=== PATIENT | female | born 1955 | race Caucasian/White ===

== ENCOUNTER 2021-12-19 18:43 | Inpatient (IN) ==
--- NOTE | 2021-12-19 19:53 | Emergency Department Note ---
Impression & Plan Acute hyponatremia [facility] ED Provider Note HPI: The patient is a 66-year-old female who presents the emergency department chief complaint of dysuria that has been ongoing for the past 2 days. Patient states this feels similar to urinary tract infections that she has had in the past. Patient states that in addition to her dysuria she has felt some generalized weakness "for about the past month". Patient states that she is having some strange hallucinations after taking pain medication including seeing small bugs. On arrival here to the ED she is hemodynamically stable, she is able to give me a lucid history, she does not have any focal deficits, denies any headache, denies any abdominal pain. Patient is otherwise in no acute distress on my initial evaluation. ROS: -General: Generalized weakness -Psychiatric: Hallucinations with pain medications -: Dysuria *10 point review systems was conducted and is otherwise negative unless stated above *Outpatient medications and allergy history reviewed PE: General: Alert, NAD HEENT: Normocephalic, atraumatic Eyes: Extraocular eye movement is intact, no scleral erythema Pulmonary: Clear to auscultation bilaterally, no wheezing Cardio: Regular rate and rhythm GI: Abdomen is soft, nontender : No suprapubic tenderness MSK: No evidence of trauma or malformation of the extremities, no edema Skin: No evidence of rash Neuro: Alert, no focal deficits Psychiatric: Cooperative threat monitoring analyst: - An order was placed for continuous cardiac monitoring - Patient was noted to be in sinus rhythm with rate of 70 EKG: Rate: 71 Rhythm: Normal sinus rhythm Intervals: Within normal limits ST changes: No ST elevation Time: 2303 CT HEAD: No acute abnormality. No acute intracranial hemorrhage or abnormal extra-axial fluid collection. No acute stroke. Ventricles and sulci normal in size for age. No midline shift. No paranasal sinus air-fluid level. No fracture. Radiologist: Prashant Perea M.D. CT ABDOMEN & PELVIS With Contrast: Small bowel is normal in caliber. Stool and gas distended right through proximal left colon. Decompressed left colon to the level of anastomotic sutures of the sigmoid colon compatible prior resection. No definite swirling pattern to surrounding vessels and mesentery to suggest a volvulus. 7 cm stool ball the distal rectosigmoid colon. There is no definite bowel obstruction. There is no evidence for colitis or diverticulitis. No free intraperitoneal gas or free fluid. OTHER FINDINGS: Liver is unremarkable. Status post cholecystectomy.. No evidence for biliary ductal dilation. Pancreas is unremarkable. Spleen is unremarkable. No obstructive uropathy. Probable small right renal cysts.. Urinary bladder is normal in appearance. Uterus and ovaries are not identified. No abdominal aortic aneurysm. Atherosclerotic vascular calcifications. Spine degenerative changes. Grade 1 anterior spondylolisthesis of L4 on L5. Radiologist: Prashant Perea M.D. Study ready at 22:41 and initial results transmitted at 23:42 Medical Decision Making: Patient presented to the emergency department with multiple issues, she complain s of generalized weakness, states she is having intermittent hallucinations which she believes is associated with hydrocodone use, patient also states that she has had dysuria over the past 2 days. IV was established, lab work obtained, patient was placed on color television console monitor. Lab work shows evidence of leukocytosis greater than 16,000 with left shift, blood cultures were drawn in the ED, procalcitonin is elevated at 0.76, lactic acid is within normal limits. Chest x-ray does not show any obvious pneumonia per my interpretation, patient denies any respiratory symptoms or cough recently. COVID-19 testing is negative. Urinalysis shows ketonuria but no evidence of infection. Patient's lab work also shows hyponatremia at 125, she is not on any diuretic therapy, unclear source for this, she appears euvolemic on my exam. Given the patient's ongoing symptoms, in addition to abnormal lab work I did obtain CT imaging of the head that shows no acute abnormality, CT abdomen and pelvis does not show any evidence of any acute surgical process or obvious source for infection. On my reassessment the patient appears well, she remains lucid, she was treated with broad-spectrum antibiotics vancomycin and ceftriaxone, will hold on IV fluids secondary to the patient's hyponatremia, I do feel she would benefit from inpatient admission and further work-up. I discussed the case with the on-call hospitalist for [facility], Dr. Solis, who admitted the patient in stable condition for further care. Diagnosis: 1. Hyponatremia, acute 2. Generalized weakness 3. Intermittent hallucinations 4. Leukocytosis with left shift 5. Elevated procalcitonin Disposition: Admission Morris Cleveland, DO Emergency Medicine Past Med/Surg History Social History Smoking Status: Never smoker Preferred Language: Cambodian Feels Safe at Home: Yes Allergies Allergies Allergy/AdvReac Type Severity Reaction Status Date / Time codeine Allergy Unknown RASH Verified 12/19/21 22:01 Home Meds Home Medications Medication Instructions Recorded Confirmed Ozempic Dose 1 mg INJ WE 12/19/21 12/19/21 aluminum-mag hydroxide-simethicone 20 ml PO DAILY 12/19/21 12/19/21 200 mg-200 mg-20 mg/5 mL oral susp amlodipine 2.5 mg tablet 2.5 mg PO DAILY 12/19/21 12/19/21 atorvastatin 20 mg tablet 20 mg PO PM 12/19/21 12/19/21 cetirizine 10 mg tablet (Zyrtec) 10 mg PO DAILY 12/19/21 12/19/21 cholecalciferol (vitamin D3) 25 25 mcg PO 5XWK 12/19/21 12/19/21 mcg (1,000 unit) tablet (Vitamin D3) cholecalciferol (vitamin D3) 25 50 mcg PO TUSA 12/19/21 12/19/21 mcg (1,000 unit) tablet (Vitamin D3) multivitamin 1 tab PO DAILY 12/19/21 12/19/21 oxybutynin chloride 5 mg tablet 5 mg PO TID 12/19/21 12/19/21 triamcinolone acetonide 0.1 % 1 applic TOPICAL BID PRN 12/19/21 12/19/21 topical cream Results & Data (ED) Vital Signs Vital Signs - 24 hr 12/19/21 18:53 12/19/21 19:44 12/19/21 22:14 Temperature 36.2 C L 37.0 C Temperature Source Temporal Artery Scan Oral Pulse Rate 85 Pulse Rate [Finger] 81 79 Respiratory Rate 18 18 15 Respiratory Effort / Characteristics Non-Labored Spontaneous Non-Labored Spontaneous Non-Labored Respiratory Depth Normal Normal Normal Blood Pressure 120/74 Blood Pressure [Right Arm] 119/69 104/58 L Blood Pressure Mean 89 Blood Pressure Mean [Right Arm] 85 73 Blood Pressure Position Sitting Pulse Oximetry 98 98 98 Oxygen Delivery Method Room Air Room Air Room Air Sepsis Recent Fever Within 48 Hours No Sepsis New/Unexplained Change in Mental Status No Sepsis Action Taken by Nursing No Action Required Laboratory Data Result diagrams: 12/19/21 19:28 12/19/21 19:28 Lab Results 12/19/21 12/19/21 12/19/21 Range/Units 19:28 19:28 19:28 WBC 16.49 H (4.8-10.8) K/ul RBC 3.98 (3.93-5.22) M/uL Hgb 13.1 (12.0-16.0) g/dl Hct 36.3 (34.1-44.9) % MCV 91.2 (80.0-100.0) fL MCH 32.9 (25.0-34.0) pg MCHC 36.1 H (32.0-36.0) g/dL RDW Std Deviation 41.8 (36.4-46.3) fL RDW Coeff of Julita 12.6 (11.5-14.5) % Plt Count 427 H (130-400) K/uL MPV 10.5 (9.4-12.3) fL Immature Gran % (Auto) 2.4 % Neut % (Auto) 82.2 % Lymph % (Auto) 7.9 % [place] % (Auto) 7.3 % Eos % (Auto) 0.0 % Baso % (Auto) 0.2 % Neut # (Auto) 13.53 H (1.4-6.5) K/uL Lymph # (Auto) 1.31 (1.2-3.4) K/uL [place] # (Auto) 1.21 H (0.24-0.82) K/uL Eos # (Auto) 0.00 (0-0.50) K/uL Baso # (Auto) 0.04 (0-0.2) K/uL Immature Gran # (Auto) 0.40 H (0.00-0.02) K/uL Sodium 125 L (136-145) mmol/L Potassium 3.7 (3.5-5.1) mmol/L Chloride 89 L (98-107) mmol/L Carbon Dioxide 25 (21-32) mmol/L Anion Gap 11 (3-11) BUN 76 H (6-23) mg/dl Creatinine 0.85 (0.6-1.2) mg/dl Est Cr Clr Drug Dosing Not Reportable Est GFR ( Amer) 81.6 ml/min Est GFR (Non-Af Amer) 70.4 ml/min BUN/Creatinine Ratio 89.4 H (10-20) Glucose 94 (70-99(Fasting)) mg/dl Lactate (0.4-2.0) mmol/L Calcium 9.5 (8.5-10.1) mg/dl Total Bilirubin 2.2 H (0.2-1.0) mg/dl AST 90 H (13-39) U/L ALT 140 H (7-52) U/L Alkaline Phosphatase 97 (34-104) U/L Troponin I High Sens 12.3 (0-14) pg/ml Total Protein 7.2 (6.0-8.3) gm/dl Albumin 3.4 (3.4-5.0) gm/dl Globulin 3.8 (2.5-4.0) gm/dl Albumin/Globulin Ratio 0.9 (0.9-2) Procalcitonin 0.76 H (0-0.5) ng/ml Urine Color Urine Appearance (Clear) Urine pH (4.5-7.5) Ur Specific [place] (1.000-1.030) Urine Protein (Negative) Urine Glucose (UA) (Negative) Urine Ketones (Negative) Urine Blood (Negative) Urine Nitrite (Negative) Urine Bilirubin (Negative) Urine Urobilinogen (Negative) Ur Leukocyte Esterase (Negative) SARS-CoV-2 (PCR) (Negative) Influenza Type A (PCR) (Neg) Influenza Type B (PCR) (Neg) RSV (RT-PCR) (Neg) 12/19/21 12/19/21 12/19/21 Range/Units 19:45 20:36 20:52 WBC (4.8-10.8) K/ul RBC (3.93-5.22) M/uL Hgb (12.0-16.0) g/dl Hct (34.1-44.9) % MCV (80.0-100.0) fL MCH (25.0-34.0) pg MCHC (32.0-36.0) g/dL RDW Std Deviation (36.4-46.3) fL RDW Coeff of Julita (11.5-14.5) % Plt Count (130-400) K/uL MPV (9.4-12.3) fL Immature Gran % (Auto) % Neut % (Auto) % Lymph % (Auto) % [place] % (Auto) % Eos % (Auto) % Baso % (Auto) % Neut # (Auto) (1.4-6.5) K/uL Lymph # (Auto) (1.2-3.4) K/uL [place] # (Auto) (0.24-0.82) K/uL Eos # (Auto) (0-0.50) K/uL Baso # (Auto) (0-0.2) K/uL Immature Gran # (Auto) (0.00-0.02) K/uL Sodium (136-145) mmol/L Potassium (3.5-5.1) mmol/L Chloride (98-107) mmol/L Carbon Dioxide (21-32) mmol/L Anion Gap (3-11) BUN (6-23) mg/dl Creatinine (0.6-1.2) mg/dl Est Cr Clr Drug Dosing Est GFR ( Amer) ml/min Est GFR (Non-Af Amer) ml/min BUN/Creatinine Ratio (10-20) Glucose (70-99(Fasting)) mg/dl Lactate 1.2 (0.4-2.0) mmol/L Calcium (8.5-10.1) mg/dl Total Bilirubin (0.2-1.0) mg/dl AST (13-39) U/L ALT (7-52) U/L Alkaline Phosphatase (34-104) U/L Troponin I High Sens (0-14) pg/ml Total Protein (6.0-8.3) gm/dl Albumin (3.4-5.0) gm/dl Globulin (2.5-4.0) gm/dl Albumin/Globulin Ratio (0.9-2) Procalcitonin (0-0.5) ng/ml Urine Color Yellow Urine Appearance Clear (Clear) Urine pH 5.5 (4.5-7.5) Ur Specific [place] 1.020 (1.000-1.030) Urine Protein Negative (Negative) Urine Glucose (UA) Negative (Negative) Urine Ketones Trace H (Negative) Urine Blood Negative (Negative) Urine Nitrite Negative (Negative) Urine Bilirubin Negative (Negative) Urine Urobilinogen Negative (Negative) Ur Leukocyte Esterase Negative (Negative) SARS-CoV-2 (PCR) NEGATIVE (Negative) Influenza Type A (PCR) Negative (Neg) Influenza Type B (PCR) Negative (Neg) RSV (RT-PCR) Negative (Neg) Administered Medications Discontinued Medications Ioversol (Optiray 320 100ml) 100 ml IV ONCE ONE Stop: 12/19/21 22:40 Last Admin: 12/19/21 22:39 Dose: 93 ml Documented by: [id number] Discharge Plan Visit Data Chief Complaint: Urinary Symptoms Stated Complaint: THINKS HAS UTI. CONCERNED OF SEPSIS ED Provider: Morris Cleveland Discharge Problem: Acute hyponatremia Forms Stand Alone Forms: [facility] [employer] Prescriptions Prescriptions: No Action multivitamin Tablet 1 tab PO DAILY RF: 0 amlodipine 2.5 mg Tablet 2.5 mg PO DAILY RF: 0 oxybutynin chloride 5 mg Tablet 5 mg PO TID RF: 0 atorvastatin 20 mg Tablet 20 mg PO PM RF: 0 cetirizine [Zyrtec] 10 mg Tablet 10 mg PO DAILY RF: 0 triamcinolone acetonide 0.1 % Cream 1 applic TOPICAL BID PRN (Reason: Itching) RF: 0 alum-mag hydroxide-simeth [Maalox] 200-200-20 mg/5 mL Suspension 20 ml PO DAILY RF: 0 cholecalciferol (vitamin D3) [Vitamin D3] 25 mcg (1,000 unit) Tablet 25 mcg PO 5XWK RF: 0 cholecalciferol (vitamin D3) [Vitamin D3] 25 mcg (1,000 unit) Tablet 50 mcg PO TUSA RF: 0 Ozempic Dose 1 mg INJ WE RF: 0 Referrals Referrals: Meron Pate C.R.NCoriP. [Primary Care Provider] -
[2021-12-19 19:54] LABS: Basophils # (auto) 0.04 K/uL (0-0.2); Basophils % (auto) 0.2 %; Hematocrit (blood only) 36.3 % (34.1-44.9); Hemoglobin 13.1 g/dl (12.0-16.0); Immature Granulocytes % (auto) 2.4 %; Lymphocytes # (auto) 1.31 K/uL (1.2-3.4); Lymphocytes % (auto) 7.9 %; Mean Corpuscular Hemoglobin 32.9 pg (25.0-34.0); Mean Corpuscular Hgb Conc 36.1 g/dL (32.0-36.0); Mean Corpuscular Volume 91.2 fL (80.0-100.0); Mean Platelet Volume 10.5 fL (9.4-12.3); Monocytes # (auto) 1.21 K/uL (0.24-0.82); Monocytes % (auto) 7.3 %; Neutrophils # (auto) 13.53 K/uL (1.4-6.5); Neutrophils % (auto) 82.2 %; Platelet Count 427 K/uL (130-400); RDW Coefficient of Variation 12.6 % (11.5-14.5); RDW Standard Deviation 41.8 fL (36.4-46.3); Red Blood Count 3.98 M/uL (3.93-5.22); White Blood Count 16.49 K/ul (4.8-10.8)
[2021-12-19 20:06] LABS: Alanine Aminotransferase 140 U/L (7-52); Albumin Globulin Ratio 0.9 (0.9-2); Albumin Level 3.4 gm/dl (3.4-5.0); Alkaline Phosphatase 97 U/L (34-104); Anion Gap 11 (3-11); Aspartate Aminotransferase 90 U/L (13-39); BUN Creatinine Ratio 89.4 (10-20); Bilirubin,Total 2.2 mg/dl (0.2-1.0); Blood Urea Nitrogen 76 mg/dl (6-23); Calcium 9.5 mg/dl (8.5-10.1); Carbon Dioxide 25 mmol/L (21-32); Chloride 89 mmol/L (98-107); Est GFR (African American) 81.6 ml/min; Est GFR (Non-African American) 70.4 ml/min; Globulin 3.8 gm/dl (2.5-4.0); Glucose 94 mg/dl (70-99(Fasting)); Potassium 3.7 mmol/L (3.5-5.1); Sodium 125 mmol/L (136-145); Total Protein 7.2 gm/dl (6.0-8.3)
[2021-12-19 20:19] LABS: Appearance Urine Clear (Clear); Bilirubin Urine Negative (Negative); Blood Urine Negative (Negative); Color Urine Yellow; Glucose Urine UA Negative (Negative); Ketones Urine Trace (Negative); Leukocyte Esterase Urine Negative (Negative); Nitrite Urine Negative (Negative); Protein Urine Negative (Negative); Urobilinogen Urine Negative (Negative); pH Urine 5.5 (4.5-7.5)
[2021-12-19 22:01] LABS: Influenza A virus by PCR Negative (Neg); Influenza B virus by PCR Negative (Neg); RSV by PCR Negative (Neg); SARS CoV2 RNA(COVID-19) InHosp NEGATIVE (Negative)
[2021-12-19] MEDS ORDERED: OPTIRAY 320 100ml IV ONE (22:39)
[2021-12-19 23:34] LABS: Troponin I High Sensitivity 12.3 pg/ml (0-14)
[2021-12-19] MEDS ORDERED: VANCOMYCIN HCL 1,750 MG in SODIUM CHLORIDE 0.9% 500 ML IV ONE (23:53)
[2021-12-19] MEDS ORDERED: VANCOMYCIN CONSULT ACTIVE PRN (23:53)
[2021-12-19] MEDS ORDERED: cefTRIAXone SODIUM 2,000 MG/70 ML BAG IV STA (23:53)
[2021-12-20] MEDS ORDERED: SODIUM CHLORIDE 1 GM TABLET PO STA (00:54)
--- NOTE | 2021-12-20 01:02 | History & Physical Report ---
Date of Service December 20, 2021 Assessment & Plan (1) Acute hyponatremia: Plan: Sodium 125 on admission Serum osmolality and urine osmolality have been added and are pending Patient has been drinking a lot of water due to symptoms of dysuria, question possible polydipsia component Restrict 1500 mils daily Start sodium chloride 1 g p.o. 3 times daily Follow serial BMP (2) Hallucinations, visual: Plan: Visual hallucinations- Potential causes include but not limited to: Hydrocodone side effect, tickborne illness, hyponatremia (3) Abnormal LFTs: Plan: AST 90, ALT 140, type total bilirubin is 2.2 Only comparison was in 2016, when normal Check hepatitis profile Check CK Due to abnormal LFTs and hallucinations: Check Lyme, anaplasmosis and babesiosis antibodies Check anaplasmosis babesiosis peripheral smear (4) Hypertension: Plan: Hold amlodipine (5) Hyperlipidemia: Plan: Continue atorvastatin (6) Diabetes mellitus: Plan: Hold Ozempic Place on Accu-Cheks before meals and at bedtime with NovoLog coverage per scale (7) Allergic rhinitis: Plan: Continue cetirizine (8) Vitamin D deficiency: Plan: Continue vitamin D (9) Bladder spasms: Plan: Continue oxybutynin chloride Patient reports a bladder stimulator placed 05/2020 is no longer functional (10) Colon cancer: Plan: History of colon cancer status post resection (11) Right leg pain: Plan: Patient reports she has a shooting pain down her right leg intermittently after having received injection by Dr. Kuo in her right hip on 12/05 work-up is ongoing per outpatient History of Present Illness Chief Complaint: The patient presents to the emergency department with complaint of discomfort urinating for the past 2 to 3 days, similar to symptoms that she has had in the past when she had urinary tract infections. She also complains of hallucinations including seeing small bugs, and feeling generally weak. Primary Care Provider: AYE Moise The patient is a 66-year-old female with a past medical history including colon cancer s/p resection, hypertension, hyperlipidemia, allergic rhinitis, vitamin D deficiency, urinary bladder spasm and diabetes mellitus. She presents with symptoms as noted above. Allergies Allergy/AdvReac Type Severity Reaction Status Date / Time codeine Allergy Unknown RASH Verified 12/19/21 22:01 Home Medications Medication Instructions Recorded Confirmed Type Ozempic Dose 1 mg INJ WE 12/19/21 12/19/21 History aluminum-mag hydroxide-simethicone 20 ml PO DAILY 12/19/21 12/19/21 History 200 mg-200 mg-20 mg/5 mL oral susp amlodipine 2.5 mg tablet 2.5 mg PO DAILY 12/19/21 12/19/21 History atorvastatin 20 mg tablet 20 mg PO PM 12/19/21 12/19/21 History cetirizine 10 mg tablet (Zyrtec) 10 mg PO DAILY 12/19/21 12/19/21 History cholecalciferol (vitamin D3) 25 25 mcg PO 5XWK 12/19/21 12/19/21 History mcg (1,000 unit) tablet (Vitamin D3) cholecalciferol (vitamin D3) 25 50 mcg PO TUSA 12/19/21 12/19/21 History mcg (1,000 unit) tablet (Vitamin D3) multivitamin 1 tab PO DAILY 12/19/21 12/19/21 History oxybutynin chloride 5 mg tablet 5 mg PO TID 12/19/21 12/19/21 History triamcinolone acetonide 0.1 % 1 applic TOPICAL BID PRN 12/19/21 12/19/21 History topical cream Past Med/Surg History Medical History (Updated 12/20/21 @ 02:40 by Montana Ventura MD) Allergic rhinitis Bladder spasms Diabetes mellitus Hyperlipidemia Hypertension Vitamin D deficiency Social History Smoking Status: Never smoker Preferred Language: Bengali Feels Safe at Home: Yes Review of Systems Review of Systems: The patient denies chest pain, palpitations, shortness of breath, dyspnea on exertion, cough, lower extremity swelling, sore throat, fevers, chills, sweats, nausea, vomiting, diarrhea , constipation, abdominal pain, pelvic pain, blood in urine or stool, dysuria, lightheadedness, dizziness, headache, memory loss, loss of consciousness, rash, abnormal bruising or bleeding, imbalance, focal weakness, numbness or tingling in arms or legs, generalized arthralgias or myalgias, back or neck pain, or night sweats. The review of systems is otherwise negative other than for that already noted above, and at least 10 systems have been reviewed. Physical Exam Physical Exam: The patient is awake, alert and oriented 3, well developed and well nourished, normocephalic and atraumatic, lying in bed and in no acute distress. HEENT--PERRL, EOMI, mucous membranes and oropharynx Normal. Neck--supple. No JVD. No bruits. Thyroid normal, trachea midline, no adenopathy. Heart--normal S1 and S2. No murmurs, rubs or gallops. Lungs--clear bilaterally, no respiratory distress, no accessory muscle use. Abdomen--normal bowel sounds and soft. Nontender. Nondistended, no hernias or masses, no organomegaly. Extremities--no cyanosis or clubbing. No edema. There are good distal pulses b/l. Dermatologic--normal skin turgor, normal color, no abnormal lymph nodes, no rash. Neurologic--cranial nerves II through XII grossly intact. Rheumatologic--normal range of motion. Psychiatric--normal affect. Results & Data Results & Data ([facility]) Vital Signs (Past 12 Hours) Vital Signs Temp Pulse Pulse Resp BP BP Pulse Ox 12/20/21 00:00 36.9 C 87 18 109/59 L 97 12/19/21 22:14 37.0 C 79 15 104/58 L 98 12/19/21 19:44 81 18 119/69 98 12/19/21 18:53 36.2 C L 85 18 120/74 98 Laboratory Results Laboratory Results WBC 16.49 K/ul (4.8-10.8) H 12/19/21 19:28 RBC 3.98 M/uL (3.93-5.22) 12/19/21 19:28 Hgb 13.1 g/dl (12.0-16.0) 12/19/21 19:28 Hct 36.3 % (34.1-44.9) 12/19/21 19: MCV 91.2 fL (80.0-100.0) 12/19/21 19:28 MCH 32.9 pg (25.0-34.0) 12/19/21 19: MCHC 36.1 g/dL (32.0-36.0) H 12/19/21 19:28 RDW Std Deviation 41.8 fL (36.4-46.3) 12/19/21 19: RDW Coeff of Julita 12.6 % (11.5-14.5) 12/19/21 19: Plt Count 427 K/uL (130-400) H 12/19/21 19: MPV 10.5 fL (9.4-12.3) 12/19/21: Immature Gran % (Auto) 2.4 % 12/19/21 19: Neut % (Auto) 82.2 % 12/19/21: Lymph % (Auto) 7.9 % 12/19/21 19: [place] % (Auto) 7.3 % 12/19/21 19: Eos % (Auto) 0.0 % 12/19/21 19: Baso % (Auto) 0.2 % 12/19/21: Neut # (Auto) 13.53 K/uL (1.4-6.5) H 12/19/21: Lymph # (Auto) 1.31 K/uL (1.2-3.4) 12/19/21: Perry # (Auto) 1.21 K/uL (0.24-0.82) H 12/19/21: Eos # (Auto) 0.00 K/uL (0-0.50) 12/19/21 19: Baso # (Auto) 0.04 K/uL (0-0.2) 12/19/21: Immature Gran # (Auto) 0.40 K/uL (0.00-0.02) H 12/19/21: Sodium 125 mmol/L (136-145) L 12/19/21: Potassium 3.7 mmol/L (3.5-5.1) 12/19/21: Chloride 89 mmol/L (98-107) L 12/19/21: Carbon Dioxide 25 mmol/L (21-32) 12/19/21: Anion Gap 11 (3-11) 12/19/21: BUN 76 mg/dl (6-23) H 12/19/21: Creatinine 0.85 mg/dl (0.6-1.2) 12/19/21: Est Cr Clr Drug Dosing Not Reportable 12/19/21: Est GFR ( Amer) 81.6 ml/min 07/06/22 19:28 Est GFR (Non-Af Amer) 70.4 ml/min 12/19/21 19:28 BUN/Creatinine Ratio 89.4 (10-20) H 12/19/21 19:28 Glucose 94 mg/dl (70-99(Fasting)) 12/19/21 19:28 Osmolality 285 mOsm/kg (280-300) 12/19/21 19:28 Lactate 1.2 mmol/L (0.4-2.0) 12/19/21 20:36 Calcium 9.5 mg/dl (8.5-10.1) 12/19/21 19:28 Total Bilirubin 2.2 mg/dl (0.2-1.0) H 12/19/21 19:28 AST 90 U/L (13-39) H 12/19/21 19:28 ALT 140 U/L (7-52) H 12/19/21 19:28 Alkaline Phosphatase 97 U/L (34-104) 12/19/21 19:28 Troponin I High Sens 12.3 pg/ml (0-14) 12/19/21 19:28 Total Protein 7.2 gm/dl (6.0-8.3) 12/19/21 19:28 Albumin 3.4 gm/dl (3.4-5.0) 12/19/21 19:28 Globulin 3.8 gm/dl (2.5-4.0) 12/19/21 19:28 Albumin/Globulin Ratio 0.9 (0.9-2) 12/19/21 19:28 Procalcitonin 0.76 ng/ml (0-0.5) H 12/19/21 19:28 Urine Color Yellow 12/19/21 19:45 Urine Appearance Clear (Clear) 12/19/21 19:45 Urine pH 5.5 (4.5-7.5) 12/19/21 19:45 Ur Specific [place] 1.020 (1.000-1.030) 12/19/21 19:45 Urine Protein Negative (Negative) 12/19/21 19:45 Urine Glucose (UA) Negative (Negative) 12/19/21 19:45 Urine Ketones Trace (Negative) H 12/19/21 19:45 Urine Blood Negative (Negative) 12/19/21 19:45 Urine Nitrite Negative (Negative) 12/19/21 19:45 Urine Bilirubin Negative (Negative) 12/19/21 19:45 Urine Urobilinogen Negative (Negative) 12/19/21 19:45 Ur Leukocyte Esterase Negative (Negative) 12/19/21 19:45 SARS-CoV-2 (PCR) NEGATIVE (Negative) 12/19/21 20:52 Influenza Type A (PCR) Negative (Neg) 12/19/21 20:52 Influenza Type B (PCR) Negative (Neg) 12/19/21 20:52 RSV (RT-PCR) Negative (Neg) 12/19/21 20:52 Diagnostic Findings [facility] Patient: ERENDIRA LEWIS (Female) : 51 Status: ER Date: 12/19/21 22:37 Room #: History: dizzy Slices: 58 Priors: Tech: Kong Garcíaie @ [phone] Exams: CT HEAD Contrast: Accession Numbers: [id number] Referring Physician: REFERRED SELF Preliminary Findings Only See Final Report For Complete Findings CT HEAD: No acute abnormality. No acute intracranial hemorrhage or abnormal extra-axial fluid collection. No acute stroke. Ventricles and sulci normal in size for age. No midline shift. No paranasal sinus air-fluid level. No fracture. Radiologist: Prashant Perea M.D. Study ready at 22:41 and initial results transmitted at 23:33 *This report constitutes a preliminary interpretation only. Non-acute findings felt to be unrelated to the clinical presentation may not be discussed in this report. The study will be interpreted and a final report will be generated by the local Radiologist the following shift. To reach the [facility] radiology department call [phone]. If a discrepancy is found between the preliminary and final interpretations of this study, please notify us via our Client Portal at [email or web address], under QA Exams. You can also fax this report with a description of the discrepancy, or include the final report, to our daytime fax number [phone]. If faxing, please indicate the severity of discrepancy using one of the following categories: [ ] 1 - Agree/Informational [ ] 2 - Unlikely to Affect Management [ ] 3 - Possible Eventual Change of Management [ ] 4 - Probable Immediate Change of Management For all other patient related information, please fax us at [phone]. [id number] [facility] Patient: ERENDIRA LEWIS (Female) : 51 Status: ER Date: 12/19/21 22:37 Room #: History: LOWER ABD PAIN WITH LEUKOCYTOSIS Slices: 669 Priors: Tech: Kong Garcíaie @ [phone] Exams: CT ABDOMEN & PELVIS With Contrast Contrast: IV Amt: 93 ML OPTIRAY 320 Accession Numbers: [id number] Referring Physician: REFERRED SELF Preliminary Findings Only See Final Report For Complete Findings CT ABDOMEN & PELVIS With Contrast: Small bowel is normal in caliber. Stool and gas distended right through proximal left colon. Decompressed left colon to the level of anastomotic sutures of the sigmoid colon compatible prior resection. No definite swirling pattern to surrounding vessels and mesentery to suggest a volvulus. 7 cm stool ball the distal rectosigmoid colon. There is no definite bowel obstruction. There is no evidence for colitis or diverticulitis. No free intraperitoneal gas or free fluid. OTHER FINDINGS: Liver is unremarkable. Status post cholecystectomy.. No evidence for biliary ductal dilation. Pancreas is unremarkable. Spleen is unremarkable. No obstructive uropathy. Probable small right renal cysts.. Urinary bladder is normal in appearance. Uterus and ovaries are not identified. No abdominal aortic aneurysm. Atherosclerotic vascular calcifications. Spine degenerative changes. Grade 1 anterior spondylolisthesis of L4 on L5. Radiologist: Prashant Perea M.D. Study ready at 22:41 and initial results transmitted at 23:42 *This report constitutes a preliminary interpretation only. Non-acute findings felt to be unrelated to the clinical presentation may not be discussed in this report. The study will be interpreted and a final report will be generated by the local Radiologist the following shift. To reach the [facility] radiology department call [phone]. If a discrepancy is found between the preliminary and final interpretations of this study, please notify us via our Client Portal at [email or web address], under QA Exams. You can also fax this report with a description of the discrepancy, or include the final report, to our daytime fax number [phone]. If faxing, please indicate the severity of discrepancy using one of the following categories: [ ] 1 - Agree/Informational [ ] 2 - Unlikely to Affect Management [ ] 3 - Possible Eventual Change of Management [ ] 4 - Probable Immediate Change of Management For all other patient related information, please fax us at [phone]. Code Status & VTE Plan Code Status Full code VTE Prophylaxis Plan VTE Prophylaxis will be ordered: Yes PG Care Time/CCT Total # of Minutes Spent Total Time Spent with Patient: Total time spent is greater than 50% in coordination of care (as documented) at patient's floor/unit and/or counseling patient: Coding Level of Care Code 41892 Initial Inpt Care Lvl 3 Diagnoses Acute hyponatremia E87.1 Colon cancer C18.9 Hallucinations, visual R44.1 Abnormal LFTs R79.89 Hypertension I10 Hyperlipidemia E78.5 Diabetes mellitus E11.9 Allergic rhinitis J30.9 Vitamin D deficiency E55.9 Bladder spasms N32.89 Right leg pain M79.604
[2021-12-20] MEDS ORDERED: ONDANSETRON INJ 2 MG/ML 2 ML VIAL IV PRN (02:15)
[2021-12-20 03:33] LABS: Lyme Ab IgG w/WB Rflx Negative (Negative); Lyme Ab IgM w/WB Rflx Negative (Negative)
[2021-12-20 06:13] LABS: Basophils # (auto) 0.02 K/uL (0-0.2); Basophils % (auto) 0.1 %; Hemoglobin 11.2 g/dl (12.0-16.0); Immature Granulocytes # (auto) 0.26 K/uL (0.00-0.02); Immature Granulocytes % (auto) 1.7 %; Lymphocytes # (auto) 0.92 K/uL (1.2-3.4); Mean Corpuscular Hemoglobin 33.2 pg (25.0-34.0); Mean Corpuscular Hgb Conc 36.1 g/dL (32.0-36.0); Mean Platelet Volume 10.3 fL (9.4-12.3); Monocytes # (auto) 0.83 K/uL (0.24-0.82); Monocytes % (auto) 5.4 %; Neutrophils # (auto) 13.31 K/uL (1.4-6.5); Neutrophils % (auto) 86.8 %; Platelet Count 377 K/uL (130-400); RDW Standard Deviation 40.9 fL (36.4-46.3); Red Blood Count 3.37 M/uL (3.93-5.22); White Blood Count 15.34 K/ul (4.8-10.8)
[2021-12-20 06:16] LABS: Albumin Globulin Ratio 0.9 (0.9-2); Albumin Level 2.9 gm/dl (3.4-5.0); Bilirubin,Total 1.7 mg/dl (0.2-1.0); Calcium 8.2 mg/dl (8.5-10.1); Creatinine Clr Calc Pharmacy 124.1 ml/min; Est GFR (African American) 119.3 ml/min; Globulin 3.2 gm/dl (2.5-4.0); Potassium 3.3 mmol/L (3.5-5.1); Total Protein 6.1 gm/dl (6.0-8.3)
--- NOTE | 2021-12-20 06:56 | CT Scan Report ---
CT head/brain wo con CLINICAL HISTORY: 66 years-old Female with dizzy. Acute dizziness TECHNIQUE: Multiple axial CT images of the head were obtained without contrast. A dose lowering tech nique was utilized adhering to the principles of ALARA. CT DOSE: 537.48 mGy.cm COMPARISON: None. FINDINGS: No acute intracranial hemorrhage, midline shift, intracranial mass, hydrocephalus, territorial ischem ia or abnormal extra-axial collection. Low-lying cerebellar tonsils. The calvarium is intact. The paranasal sinuses, mastoid air cells, and middle ear cavities are clear . IMPRESSION: No acute intracranial abnormality. ACT 112: Negative or not required by law. The above report was generated using voice recognition software. It may contain grammatical, syntax o r spelling errors. Electronically signed by: Chito Perez M.D. 12/20/2021 6:55 AM
[2021-12-20] MEDS ORDERED: POTASSIUM CHLORIDE 10 MEQ TABCR PO STA (07:45)
--- NOTE | 2021-12-20 07:55 | XRay Report ---
XR chest 1V portable HISTORY: weakness COMPARISON: Chest 11/17/2015. FINDINGS: The lungs are clear. No pleural effusions. No pneumothorax. The cardiac silhouette remains mildly enlarged. No rib fractures. IMPRESSION: No significant change compared to the prior study. No acute process. ACT 112: Negative or not required by law. Electronically signed by: Gonzalez Danielle M.D. 12/20/2021 7:53 AM
--- NOTE | 2021-12-20 08:33 | CT Scan Report ---
ABDOMEN AND PELVIS CT WITH IV CONTRAST CT DOSE: 1435.22 mGy.cm HISTORY: lower abd pain, leukocytosis TECHNIQUE: Multiaxial CT images of the abdomen and pelvis were performed following the use of intrave nous contrast. A dose lowering technique was utilized adhering to the principles of ALARA. COMPARISON STUDY: None. FINDINGS: A 3 mm subpleural nodule within the right lower lobe on image 6. This favors an area of sca rring. The left lung base is clear. No pneumoperitoneum. No pneumatosis. Degenerative changes within the lumbar spine and hips. There is a right gluteal stimulator device with the lead terminating withi n the right side of the sacrum. Prior mesh repair of a midline ventral hernia. There is a tiny hiatus hernia. Cholecystectomy and hysterectomy. The liver, spleen, pancreas, and right adrenal gland are u nremarkable. Mild nodular thickening within the left adrenal gland. There are few subcentimeter bilat eral renal hypodense lesions. These are technically too small to characterize. No renal or ureteral c alculi. No hydronephrosis. There is a left retroaortic renal vein. Calcified plaque within the normal caliber abdominal aorta. No retroperitoneal lymphadenopathy. No pelvic free fluid. The bladder is un remarkable. Moderate well-formed stool within the distal rectum. Prior rectosigmoid anastomosis. Mild ly dilated gas and stool-filled colon. No transition point to suggest an obstruction. Overall, there is a moderate amount of well-formed stool within the colon suggestive of constipation. Normal appendi x. The small bowel is normal in caliber. IMPRESSION: 1. No bowel wall thickening or obstruction. 2. Moderate well-formed stool seen throughout the colon. 3. Prior cholecystectomy and hysterectomy. 4. Additional findings as described above. ACT 112: Negative or not required by law. Electronically signed by: Gonzalez Danielle M.D. 12/20/2021 8:32 AM
[2021-12-20] MEDS: CETIRIZINE HCL 10 MG TABLET PO SCH (08:41)
[2021-12-20] MEDS: CHOLECALCIFEROL 1,000 UNITS 25 MCG TAB PO SCH (08:41)
[2021-12-20] MEDS: MULTIVITAMIN TAB PO SCH (08:41)
[2021-12-20] MEDS: OXYBUTYNIN CHLORIDE 5 MG TAB PO SCH ×3 (08:41→20:19)
[2021-12-20] MEDS: SODIUM CHLORIDE 1 GM TABLET PO SCH ×3 (08:41→20:19)
[2021-12-20] MEDS: ALUMINUM/MAGNESIUM/SIMETH (MAALOX MAX) 30 ML UDC PO SCH (08:43)
[2021-12-20 11:12] LABS: A calco-baum cmplx NotReported Not Detected (NotDetected); Bact fragilis Not Reported Not Detected (NotDetected); C auris Not Reported Not Detected (NotDetected); CTX-M Resistant Gene Not Detected (NotDetected); Calbicans Not Reported Not Detected (NotDetected); Candida glabrata Not Reported Not Detected (NotDetected); Candida krusei Not Reported Not Detected (NotDetected); Cneoformans/gatti Not Reported Not Detected (NotDetected); Cparapsilosis Not Reported Not Detected (NotDetected); Ctropicalis Not Reported Not Detected (NotDetected); E cloacae compx Not Reported Not Detected (NotDetected); Efaecalis Not Reported Not Detected (NotDetected); Efaecium Not Reported Not Detected (NotDetected); Enterobacterales DETECTED (NotDetected); Enterobacterales Not Reported DETECTED (NotDetected); Escherichia coli Not Reported Not Detected (NotDetected); H influenzae Not Reported Not Detected (NotDetected); IMP Resistant Gene Not Detected (NotDetected); K aerogenes Not Reported Not Detected (NotDetected); KPC Resistant Gene Not Detected (NotDetected); Koxytoca Not Reported Not Detected (NotDetected); Kpneumoniae grp Not Reported Not Detected (NotDetected); Lmonocyt Not Reported Not Detected (NotDetected); N meningitidis Not Reported Not Detected (NotDetected); NDM Resistant Gene Not Detected (NotDetected); OXA 48 Like Resistant Gene Not Detected (NotDetected); P aeruginosa Not Reported Not Detected (NotDetected); Proteus spp Not Reported DETECTED (NotDetected); Salmonella spp Not Reported Not Detected (NotDetected); Smarcescens Not Reported Not Detected (NotDetected); Staph lugdunensis Not Reported Not Detected (NotDetected); Staph spp. Not Reported Not Detected (NotDetected); Staphaureus Not Reported Not Detected (NotDetected); Staphepi Not Reported Not Detected (NotDetected); Stenmaltophilia Not Reported Not Detected (NotDetected); Strep agal(GrpB) Not Reported Not Detected (NotDetected); Strep pneum Not Reported Not Detected (NotDetected); Strep pyog (GrpA) Not Reported Not Detected (NotDetected); Strep spp Not Reported Not Detected (NotDetected); VIM Resistant Gene Not Detected (NotDetected)
[2021-12-20 11:29] LABS: Proteus species DETECTED (NotDetected)
[2021-12-20] MEDS: cefTRIAXone SODIUM 2,000 MG in DEXTROSE 5% 50 ML IV SCH (13:24)
[2021-12-20] MEDS: POLYETHYLENE (MIRALAX) 17 GM PACK PO SCH (15:43)
--- NOTE | 2021-12-20 16:09 | Hospitalist Progress Note ---
Date of Service December 20, 2021 Assessment & Plan (1) Bacteremia: Plan: 66yo female with a past medical history PMHx of colon cancer s/p resection, hypertension, hyperlipidemia, allergic rhinitis, vitamin D deficiency, urinary bladder spasm and diabetes mellitus presented with concern for UTI over past few days. Bacteremia, likely secondary from urinary source -presented with dysuria, urinary frequency past few days -UA no signs of infection, cultures not sent -blood cx preliminary growing gram neg bacilli -cont. rocephin, await sensitivities -WBC improving, trend cbc Acute hyponatremia -Sodium 125 on admission, improved to 128 -likely 2/2 to ongoing infection, poor intake -Restrict 1500 mLs, cont. sodium chloride 1 g p.o. 3 times daily -trend BMP Hallucinations, visual, resolved -Potential causes include but not limited to: Hydrocodone side effect, tickborne illness, hyponatremia, infection -lyme neg, anaplasmosis/babesiosis pending -no longer on hydrocodone, hyponatremia improving -positive bacteremia on now on abx -first day of resolved hallucinations Weakness -as above, likely 2/2 ongoing infection and deconditioning -begin PT/OT Abnormal LFTs -AST 90, ALT 140, type total bilirubin is 2.2, improving -Only comparison was in 2016, when normal -hep panel pending -CK mildly elevated -cont. to monitor Hypertension -Hold amlodipine due to soft pressures Hyperlipidemia -Continue atorvastatin Diabetes mellitus -Hold Ozempic -cont. Accu-Cheks before meals and at bedtime with NovoLog coverage per scale Allergic rhinitis -Continue cetirizine Vitamin D deficiency -Continue vitamin D Bladder spasms -Continue oxybutynin chloride -Patient reports a bladder stimulator placed 05/2020 is no longer functional Colon cancer History of colon cancer status post resection Right leg pain Patient reports she has a shooting pain down her right leg intermittently after having received injection by Dr. Kuo in her right hip on 12/05 work-up is ongoing per outpatient DVT ppx: lovenox 40mg sq daily FEN/GI: HH, fluid restriction 1500mL Code Status: full Dispo: med surg (2) Acute hyponatremia: (3) Hallucinations, visual: (4) Abnormal LFTs: (5) Hypertension: (6) Hyperlipidemia: (7) Diabetes mellitus: (8) Allergic rhinitis: (9) Vitamin D deficiency: (10) Colon cancer: (11) Right leg pain: Admission and Anticipated Discharge Date Admission Date: December 20, 2021 Supervising Physician Co-Signing Physician Notes I personally examined the patient and verified all patel points of history and exam, discussed case, and agree with decision making with Dr Lowe. Generally feeling better. No further hallucinations. Did have dysuria for a good week prior to admission. Vitals noted, in general she is awake and alert oriented pleasant no distress. HEENT normocephalic atraumatic mucous membranes moist. Breathing unlabored no accessory muscle use good effort. Skin shows no rashes no pallor or icterus. Neuro without focal deficits. Gram-negative bacteremia with sepsis (white count, transiently heart rate) present on admissioncontinue ceftriaxone pending final sensitivities. Likely was a urinary source in spite of her bland urinalysisgiven her persistent dysuria. Anticipate 14 days of total treatment, likely able to transition to p.o. once sensitivities are back. Hallucinationshave resolvedwhile it is a bit odd for them to be purely hallucinations as an encephalopathic/delirious picture related to the sepsis, it certainly fits with the "cause and effect timeline", although also she could have been having hallucinations as a side effect to her narcotic which has also been discontinued. Continue to monitor, but low suspicion for any sort of a psychosis. Transaminitiseither septic related, or pain med relatedor possibly both. Hepatitis panel pending, although I doubt this will come of clinical significance. Continue to follow numbers. Hip painlikely arthritic. PT/OT eval and treat. Given that her bacteremia is gram-negative, low suspicion of any type of a septic joint, although if the pain seems to continue to worsen or fails to improve with therapy and time, then may need to consider working up further. Hyponatremiaprobably multifactorial, fairly mild, could have possibly been contributing to hallucinations but doubtful given the low degree of hyponatremia. Improvingcontinue to follow. DVT prophylaxisLovenox. Subjective Patient seen at bedside this morning. Further history in detail, about 8 days ago felt extremely weak at her legs and had a fall, has been using a cane to ambulate since. Had associated visual hallucinations, dysuria, and urinary frequency as well. Prior on december 05, had a cortisone injection in her right hip for right hip arthritis and started taking hydrocodone 1-2 weeks ago after the right hip continued hurting s/p injury. Today, she is no longer having visual hallucinations. Difficulty moving right leg. Able to move left. Denies chest pain, SOB, abd pain, N/V. Generally feeling a little better than previous. Review of Systems Review of Systems: All systems reviewed & are unremarkable except as noted in HPI & below Physical Exam Physical Exam: General-- NCAT, lying in bed, in no acute distress. HEENT--EOMI, moist mucous membranes Neck--supple. No JVD. Thyroid normal, trachea midline, no adenopathy. Heart-- RRR. No murmurs, rubs or gallops. Lungs--clear bilaterally, no respiratory distress, no accessory muscle use. Abdomen-- soft. Nontender. Nondistended. Extremities--no cyanosis or clubbing. No edema. Good distal pulses b/l. Skin-- normal color, no rash. Neurologic--AAOx3. cranial nerves II through XII grossly intact. Psychiatric--normal affect. Results & Data Results & Data ([facility]) Vital Signs (Past 12 Hours) Vital Signs Temp Pulse Pulse Resp BP Pulse Ox 12/20/21 15:18 36.8 C 73 24 109/63 91 12/20/21 12:01 36.8 C 69 22 103/65 96 12/20/21 07:32 37.5 C 96 H 19 109/68 95 12/20/21 07:00 77 Laboratory Results 12/20/21 12/20/21 12/20/21 Range/Units 16:09 13:35 11:13 WBC (4.8-10.8) K/ul RBC (3.93-5.22) M/uL Hgb (12.0-16.0) g/dl Hct (34.1-44.9) % MCV (80.0-100.0) fL MCH (25.0-34.0) pg MCHC (32.0-36.0) g/dL RDW Std Deviation (36.4-46.3) fL RDW Coeff of Julita (11.5-14.5) % Plt Count (130-400) K/uL MPV (9.4-12.3) fL Immature Gran % (Auto) % Neut % (Auto) % Lymph % (Auto) % Lincoln % (Auto) % Eos % (Auto) % Baso % (Auto) % Neut # (Auto) (1.4-6.5) K/uL Lymph # (Auto) (1.2-3.4) K/uL Lincoln # (Auto) (0.24-0.82) K/uL Eos # (Auto) (0-0.50) K/uL Baso # (Auto) (0-0.2) K/uL Immature Gran # (Auto) (0.00-0.02) K/uL Sodium (136-145) mmol/L Potassium (3.5-5.1) mmol/L Chloride (98-107) mmol/L Carbon Dioxide (21-32) mmol/L Anion Gap (3-11) BUN (6-23) mg/dl Creatinine (0.6-1.2) mg/dl Est Cr Clr Drug Dosing Est GFR ( Amer) ml/min Est GFR (Non-Af Amer) ml/min BUN/Creatinine Ratio (10-20) Glucose (70-99(Fasting)) mg/dl POC Glucose 85 92 (70-99) mg/dl Osmolality (280-300) mOsm/kg Lactate (0.4-2.0) mmol/L Calcium (8.5-10.1) mg/dl Total Bilirubin (0.2-1.0) mg/dl AST (13-39) U/L ALT (7-52) U/L Alkaline Phosphatase (34-104) U/L Total Creatine Kinase (26-192) U/L Troponin I High Sens (0-14) pg/ml Total Protein (6.0-8.3) gm/dl Albumin (3.4-5.0) gm/dl Globulin (2.5-4.0) gm/dl Albumin/Globulin Ratio (0.9-2) Procalcitonin (0-0.5) ng/ml Urine Color Urine Appearance (Clear) Urine pH (4.5-7.5) Ur Specific Olga (1.000-1.030) Urine Protein (Negative) Urine Glucose (UA) (Negative) Urine Ketones (Negative) Urine Blood (Negative) Urine Nitrite (Negative) Urine Bilirubin (Negative) Urine Urobilinogen (Negative) Ur Leukocyte Esterase (Negative) Urine Osmolality 830 H (500-800) mOsm/kg Anaplasma Smear A. phagocytophilum DNA Babesia Smear Babesia microti DNA PCR Lyme Disease IgG Ab (Negative) Lyme Disease IgM Ab (Negative) SARS-CoV-2 (PCR) (Negative) Enterobacterales (PCR) (NotDetected) Hepatitis A IgM Ab Hep Bs Antigen Hep Bs Ag Confirmation Hep B Core IgM Ab Hepatitis C Ab (EIA) Hep C Ab Signal/Cutoff Influenza Type A (PCR) (Neg) Influenza Type B (PCR) (Neg) Proteus species (PCR) (NotDetected) RSV (RT-PCR) (Neg) blaIMP Car res Gene PCR (NotDetected) KPC-Carbap Res Gene PCR (NotDetected) blaNDM Car Res Gene PCR (NotDetected) OXA-48 Carbapenem Resis Gene (PCR) (NotDetected) blaVIM Car Res Gene PCR (NotDetected) CTX-M Gene Resistance (PCR) (NotDetected) Bld Cult ID Panel PCR (NotDetected) 12/20/21 12/20/21 12/20/21 Range/Units 06:59 05:26 05:26 WBC (4.8-10.8) K/ul RBC (3.93-5.22) M/uL Hgb (12.0-16.0) g/dl Hct (34.1-44.9) % MCV (80.0-100.0) fL MCH (25.0-34.0) pg MCHC (32.0-36.0) g/dL RDW Std Deviation (36.4-46.3) fL RDW Coeff of Julita (11.5-14.5) % Plt Count (130-400) K/uL MPV (9.4-12.3) fL Immature Gran % (Auto) % Neut % (Auto) % Lymph % (Auto) % Lincoln % (Auto) % Eos % (Auto) % Baso % (Auto) % Neut # (Auto) (1.4-6.5) K/uL Lymph # (Auto) (1.2-3.4) K/uL Lincoln # (Auto) (0.24-0.82) K/uL Eos # (Auto) (0-0.50) K/uL Baso # (Auto) (0-0.2) K/uL Immature Gran # (Auto) (0.00-0.02) K/uL Sodium (136-145) mmol/L Potassium (3.5-5.1) mmol/L Chloride (98-107) mmol/L Carbon Dioxide (21-32) mmol/L Anion Gap (3-11) BUN (6-23) mg/dl Creatinine (0.6-1.2) mg/dl Est Cr Clr Drug Dosing Est GFR ( Amer) ml/min Est GFR (Non-Af Amer) ml/min BUN/Creatinine Ratio (10-20) Glucose (70-99(Fasting)) mg/dl POC Glucose 94 (70-99) mg/dl Osmolality (280-300) mOsm/kg Lactate (0.4-2.0) mmol/L Calcium (8.5-10.1) mg/dl Total Bilirubin (0.2-1.0) mg/dl AST (13-39) U/L ALT (7-52) U/L Alkaline Phosphatase (34-104) U/L Total Creatine Kinase (26-192) U/L Troponin I High Sens (0-14) pg/ml Total Protein (6.0-8.3) gm/dl Albumin (3.4-5.0) gm/dl Globulin (2.5-4.0) gm/dl Albumin/Globulin Ratio (0.9-2) Procalcitonin (0-0.5) ng/ml Urine Color Urine Appearance (Clear) Urine pH (4.5-7.5) Ur Specific Olga (1.000-1.030) Urine Protein (Negative) Urine Glucose (UA) (Negative) Urine Ketones (Negative) Urine Blood (Negative) Urine Nitrite (Negative) Urine Bilirubin (Negative) Urine Urobilinogen (Negative) Ur Leukocyte Esterase (Negative) Urine Osmolality (500-800) mOsm/kg Anaplasma Smear A. phagocytophilum DNA Pending Babesia Smear Babesia microti DNA PCR Pending Lyme Disease IgG Ab (Negative) Lyme Disease IgM Ab (Negative) SARS-CoV-2 (PCR) (Negative) Enterobacterales (PCR) (NotDetected) Hepatitis A IgM Ab Hep Bs Antigen Hep Bs Ag Confirmation Hep B Core IgM Ab Hepatitis C Ab (EIA) Hep C Ab Signal/Cutoff Influenza Type A (PCR) (Neg) Influenza Type B (PCR) (Neg) Proteus species (PCR) (NotDetected) RSV (RT-PCR) (Neg) blaIMP Car res Gene PCR (NotDetected) KPC-Carbap Res Gene PCR (NotDetected) blaNDM Car Res Gene PCR (NotDetected) OXA-48 Carbapenem Resis Gene (PCR) (NotDetected) blaVIM Car Res Gene PCR (NotDetected) CTX-M Gene Resistance (PCR) (NotDetected) Bld Cult ID Panel PCR (NotDetected) 12/20/21 12/20/21 12/20/21 Range/Units 05:26 05:26 05:26 WBC 15.34 H (4.8-10.8) K/ul RBC 3.37 L (3.93-5.22) M/uL Hgb 11.2 L (12.0-16.0) g/dl Hct 31.0 L (34.1-44.9) % MCV 92.0 (80.0-100.0) fL MCH 33.2 (25.0-34.0) pg MCHC 36.1 H (32.0-36.0) g/dL RDW Std Deviation 40.9 (36.4-46.3) fL RDW Coeff of Julita 12.0 (11.5-14.5) % Plt Count 377 (130-400) K/uL MPV 10.3 (9.4-12.3) fL Immature Gran % (Auto) 1.7 % Neut % (Auto) 86.8 % Lymph % (Auto) 6.0 % Lincoln % (Auto) 5.4 % Eos % (Auto) 0.0 % Baso % (Auto) 0.1 % Neut # (Auto) 13.31 H (1.4-6.5) K/uL Lymph # (Auto) 0.92 L (1.2-3.4) K/uL Lincoln # (Auto) 0.83 H (0.24-0.82) K/uL Eos # (Auto) 0.00 (0-0.50) K/uL Baso # (Auto) 0.02 (0-0.2) K/uL Immature Gran # (Auto) 0.26 H (0.00-0.02) K/uL Sodium 128 L (136-145) mmol/L Potassium 3.3 L (3.5-5.1) mmol/L Chloride 96 L (98-107) mmol/L Carbon Dioxide 23 (21-32) mmol/L Anion Gap 9 (3-11) BUN 45 H D (6-23) mg/dl Creatinine 0.45 L D (0.6-1.2) mg/dl Est Cr Clr Drug Dosing 124.1 Est GFR ( Amer) 119.3 ml/min Est GFR (Non-Af Amer) 103.0 ml/min BUN/Creatinine Ratio 100.0 H (10-20) Glucose 91 (70-99(Fasting)) mg/dl POC Glucose (70-99) mg/dl Osmolality (280-300) mOsm/kg Lactate (0.4-2.0) mmol/L Calcium 8.2 L (8.5-10.1) mg/dl Total Bilirubin 1.7 H (0.2-1.0) mg/dl AST 63 H (13-39) U/L ALT 109 H (7-52) U/L Alkaline Phosphatase 83 (34-104) U/L Total Creatine Kinase (26-192) U/L Troponin I High Sens (0-14) pg/ml Total Protein 6.1 (6.0-8.3) gm/dl Albumin 2.9 L (3.4-5.0) gm/dl Globulin 3.2 (2.5-4.0) gm/dl Albumin/Globulin Ratio 0.9 (0.9-2) Procalcitonin (0-0.5) ng/ml Urine Color Urine Appearance (Clear) Urine pH (4.5-7.5) Ur Specific Olga (1.000-1.030) Urine Protein (Negative) Urine Glucose (UA) (Negative) Urine Ketones (Negative) Urine Blood (Negative) Urine Nitrite (Negative) Urine Bilirubin (Negative) Urine Urobilinogen (Negative) Ur Leukocyte Esterase (Negative) Urine Osmolality (500-800) mOsm/kg Anaplasma Smear A. phagocytophilum DNA Babesia Smear Babesia microti DNA PCR Lyme Disease IgG Ab (Negative) Lyme Disease IgM Ab (Negative) SARS-CoV-2 (PCR) (Negative) Enterobacterales (PCR) (NotDetected) Hepatitis A IgM Ab Pending Hep Bs Antigen Pending Hep Bs Ag Confirmation Pending Hep B Core IgM Ab Pending Hepatitis C Ab (EIA) Pending Hep C Ab Signal/Cutoff Pending Influenza Type A (PCR) (Neg) Influenza Type B (PCR) (Neg) Proteus species (PCR) (NotDetected) RSV (RT-PCR) (Neg) blaIMP Car res Gene PCR (NotDetected) KPC-Carbap Res Gene PCR (NotDetected) blaNDM Car Res Gene PCR (NotDetected) OXA-48 Carbapenem Resis Gene (PCR) (NotDetected) blaVIM Car Res Gene PCR (NotDetected) CTX-M Gene Resistance (PCR) (NotDetected) Bld Cult ID Panel PCR (NotDetected) 12/19/21 12/19/21 12/19/21 Range/Units 20:52 20:36 20:36 WBC (4.8-10.8) K/ul RBC (3.93-5.22) M/uL Hgb (12.0-16.0) g/dl Hct (34.1-44.9) % MCV (80.0-100.0) fL MCH (25.0-34.0) pg MCHC (32.0-36.0) g/dL RDW Std Deviation (36.4-46.3) fL RDW Coeff of Julita (11.5-14.5) % Plt Count (130-400) K/uL MPV (9.4-12.3) fL Immature Gran % (Auto) % Neut % (Auto) % Lymph % (Auto) % Lincoln % (Auto) % Eos % (Auto) % Baso % (Auto) % Neut # (Auto) (1.4-6.5) K/uL Lymph # (Auto) (1.2-3.4) K/uL Lincoln # (Auto) (0.24-0.82) K/uL Eos # (Auto) (0-0.50) K/uL Baso # (Auto) (0-0.2) K/uL Immature Gran # (Auto) (0.00-0.02) K/uL Sodium (136-145) mmol/L Potassium (3.5-5.1) mmol/L Chloride (98-107) mmol/L Carbon Dioxide (21-32) mmol/L Anion Gap (3-11) BUN (6-23) mg/dl Creatinine (0.6-1.2) mg/dl Est Cr Clr Drug Dosing Est GFR ( Amer) ml/min Est GFR (Non-Af Amer) ml/min BUN/Creatinine Ratio (10-20) Glucose (70-99(Fasting)) mg/dl POC Glucose (70-99) mg/dl Osmolality (280-300) mOsm/kg Lactate 1.2 (0.4-2.0) mmol/L Calcium (8.5-10.1) mg/dl Total Bilirubin (0.2-1.0) mg/dl AST (13-39) U/L ALT (7-52) U/L Alkaline Phosphatase (34-104) U/L Total Creatine Kinase (26-192) U/L Troponin I High Sens (0-14) pg/ml Total Protein (6.0-8.3) gm/dl Albumin (3.4-5.0) gm/dl Globulin (2.5-4.0) gm/dl Albumin/Globulin Ratio (0.9-2) Procalcitonin (0-0.5) ng/ml Urine Color Urine Appearance (Clear) Urine pH (4.5-7.5) Ur Specific Olga (1.000-1.030) Urine Protein (Negative) Urine Glucose (UA) (Negative) Urine Ketones (Negative) Urine Blood (Negative) Urine Nitrite (Negative) Urine Bilirubin (Negative) Urine Urobilinogen (Negative) Ur Leukocyte Esterase (Negative) Urine Osmolality (500-800) mOsm/kg Anaplasma Smear A. phagocytophilum DNA Babesia Smear Babesia microti DNA PCR Lyme Disease IgG Ab (Negative) Lyme Disease IgM Ab (Negative) SARS-CoV-2 (PCR) NEGATIVE (Negative) Enterobacterales (PCR) DETECTED A (NotDetected) Hepatitis A IgM Ab Hep Bs Antigen Hep Bs Ag Confirmation Hep B Core IgM Ab Hepatitis C Ab (EIA) Hep C Ab Signal/Cutoff Influenza Type A (PCR) Negative (Neg) Influenza Type B (PCR) Negative (Neg) Proteus species (PCR) DETECTED A (NotDetected) RSV (RT-PCR) Negative (Neg) blaIMP Car res Gene PCR Not Detected (NotDetected) KPC-Carbap Res Gene PCR Not Detected (NotDetected) blaNDM Car Res Gene PCR Not Detected (NotDetected) OXA-48 Carbapenem Resis Gene (PCR) Not Detected (NotDetected) blaVIM Car Res Gene PCR Not Detected (NotDetected) CTX-M Gene Resistance (PCR) Not Detected (NotDetected) Bld Cult ID Panel PCR See PCR Comment (NotDetected) 12/19/21 12/19/21 12/19/21 Range/Units 19:45 19:28 19:28 WBC (4.8-10.8) K/ul RBC (3.93-5.22) M/uL Hgb (12.0-16.0) g/dl Hct (34.1-44.9) % MCV (80.0-100.0) fL MCH (25.0-34.0) pg MCHC (32.0-36.0) g/dL RDW Std Deviation (36.4-46.3) fL RDW Coeff of Julita (11.5-14.5) % Plt Count (130-400) K/uL MPV (9.4-12.3) fL Immature Gran % (Auto) % Neut % (Auto) % Lymph % (Auto) % Lincoln % (Auto) % Eos % (Auto) % Baso % (Auto) % Neut # (Auto) (1.4-6.5) K/uL Lymph # (Auto) (1.2-3.4) K/uL Lincoln # (Auto) (0.24-0.82) K/uL Eos # (Auto) (0-0.50) K/uL Baso # (Auto) (0-0.2) K/uL Immature Gran # (Auto) (0.00-0.02) K/uL Sodium (136-145) mmol/L Potassium (3.5-5.1) mmol/L Chloride (98-107) mmol/L Carbon Dioxide (21-32) mmol/L Anion Gap (3-11) BUN (6-23) mg/dl Creatinine (0.6-1.2) mg/dl Est Cr Clr Drug Dosing Est GFR ( Amer) ml/min Est GFR (Non-Af Amer) ml/min BUN/Creatinine Ratio (10-20) Glucose (70-99(Fasting)) mg/dl POC Glucose (70-99) mg/dl Osmolality (280-300) mOsm/kg Lactate (0.4-2.0) mmol/L Calcium (8.5-10.1) mg/dl Total Bilirubin (0.2-1.0) mg/dl AST (13-39) U/L ALT (7-52) U/L Alkaline Phosphatase (34-104) U/L Total Creatine Kinase 359 H (26-192) U/L Troponin I High Sens (0-14) pg/ml Total Protein (6.0-8.3) gm/dl Albumin (3.4-5.0) gm/dl Globulin (2.5-4.0) gm/dl Albumin/Globulin Ratio (0.9-2) Procalcitonin (0-0.5) ng/ml Urine Color Yellow Urine Appearance Clear (Clear) Urine pH 5.5 (4.5-7.5) Ur Specific Olga 1.020 (1.000-1.030) Urine Protein Negative (Negative) Urine Glucose (UA) Negative (Negative) Urine Ketones Trace H (Negative) Urine Blood Negative (Negative) Urine Nitrite Negative (Negative) Urine Bilirubin Negative (Negative) Urine Urobilinogen Negative (Negative) Ur Leukocyte Esterase Negative (Negative) Urine Osmolality (500-800) mOsm/kg Anaplasma Smear A. phagocytophilum DNA Babesia Smear Babesia microti DNA PCR Lyme Disease IgG Ab Negative (Negative) Lyme Disease IgM Ab Negative (Negative) SARS-CoV-2 (PCR) (Negative) Enterobacterales (PCR) (NotDetected) Hepatitis A IgM Ab Hep Bs Antigen Hep Bs Ag Confirmation Hep B Core IgM Ab Hepatitis C Ab (EIA) Hep C Ab Signal/Cutoff Influenza Type A (PCR) (Neg) Influenza Type B (PCR) (Neg) Proteus species (PCR) (NotDetected) RSV (RT-PCR) (Neg) blaIMP Car res Gene PCR (NotDetected) KPC-Carbap Res Gene PCR (NotDetected) blaNDM Car Res Gene PCR (NotDetected) OXA-48 Carbapenem Resis Gene (PCR) (NotDetected) blaVIM Car Res Gene PCR (NotDetected) CTX-M Gene Resistance (PCR) (NotDetected) Bld Cult ID Panel PCR (NotDetected) 12/19/21 12/19/21 12/19/21 Range/Units 19:28 19:28 19:28 WBC (4.8-10.8) K/ul RBC (3.93-5.22) M/uL Hgb (12.0-16.0) g/dl Hct (34.1-44.9) % MCV (80.0-100.0) fL MCH (25.0-34.0) pg MCHC (32.0-36.0) g/dL RDW Std Deviation (36.4-46.3) fL RDW Coeff of Julita (11.5-14.5) % Plt Count (130-400) K/uL MPV (9.4-12.3) fL Immature Gran % (Auto) % Neut % (Auto) % Lymph % (Auto) % Lincoln % (Auto) % Eos % (Auto) % Baso % (Auto) % Neut # (Auto) (1.4-6.5) K/uL Lymph # (Auto) (1.2-3.4) K/uL Lincoln # (Auto) (0.24-0.82) K/uL Eos # (Auto) (0-0.50) K/uL Baso # (Auto) (0-0.2) K/uL Immature Gran # (Auto) (0.00-0.02) K/uL Sodium 125 L (136-145) mmol/L Potassium 3.7 (3.5-5.1) mmol/L Chloride 89 L (98-107) mmol/L Carbon Dioxide 25 (21-32) mmol/L Anion Gap 11 (3-11) BUN 76 H (6-23) mg/dl Creatinine 0.85 (0.6-1.2) mg/dl Est Cr Clr Drug Dosing Not Reportable Est GFR ( Amer) 81.6 ml/min Est GFR (Non-Af Amer) 70.4 ml/min BUN/Creatinine Ratio 89.4 H (10-20) Glucose 94 (70-99(Fasting)) mg/dl POC Glucose (70-99) mg/dl Osmolality 285 (280-300) mOsm/kg Lactate (0.4-2.0) mmol/L Calcium 9.5 (8.5-10.1) mg/dl Total Bilirubin 2.2 H (0.2-1.0) mg/dl AST 90 H (13-39) U/L ALT 140 H (7-52) U/L Alkaline Phosphatase 97 (34-104) U/L Total Creatine Kinase (26-192) U/L Troponin I High Sens 12.3 (0-14) pg/ml Total Protein 7.2 (6.0-8.3) gm/dl Albumin 3.4 (3.4-5.0) gm/dl Globulin 3.8 (2.5-4.0) gm/dl Albumin/Globulin Ratio 0.9 (0.9-2) Procalcitonin 0.76 H (0-0.5) ng/ml Urine Color Urine Appearance (Clear) Urine pH (4.5-7.5) Ur Specific Olga (1.000-1.030) Urine Protein (Negative) Urine Glucose (UA) (Negative) Urine Ketones (Negative) Urine Blood (Negative) Urine Nitrite (Negative) Urine Bilirubin (Negative) Urine Urobilinogen (Negative) Ur Leukocyte Esterase (Negative) Urine Osmolality (500-800) mOsm/kg Anaplasma Smear A. phagocytophilum DNA Babesia Smear Babesia microti DNA PCR Lyme Disease IgG Ab (Negative) Lyme Disease IgM Ab (Negative) SARS-CoV-2 (PCR) (Negative) Enterobacterales (PCR) (NotDetected) Hepatitis A IgM Ab Hep Bs Antigen Hep Bs Ag Confirmation Hep B Core IgM Ab Hepatitis C Ab (EIA) Hep C Ab Signal/Cutoff Influenza Type A (PCR) (Neg) Influenza Type B (PCR) (Neg) Proteus species (PCR) (NotDetected) RSV (RT-PCR) (Neg) blaIMP Car res Gene PCR (NotDetected) KPC-Carbap Res Gene PCR (NotDetected) blaNDM Car Res Gene PCR (NotDetected) OXA-48 Carbapenem Resis Gene (PCR) (NotDetected) blaVIM Car Res Gene PCR (NotDetected) CTX-M Gene Resistance (PCR) (NotDetected) Bld Cult ID Panel PCR (NotDetected) 12/19/21 Range/Units 19:28 WBC 16.49 H (4.8-10.8) K/ul RBC 3.98 (3.93-5.22) M/uL Hgb 13.1 (12.0-16.0) g/dl Hct 36.3 (34.1-44.9) % MCV 91.2 (80.0-100.0) fL MCH 32.9 (25.0-34.0) pg MCHC 36.1 H (32.0-36.0) g/dL RDW Std Deviation 41.8 (36.4-46.3) fL RDW Coeff of Julita 12.6 (11.5-14.5) % Plt Count 427 H (130-400) K/uL MPV 10.5 (9.4-12.3) fL Immature Gran % (Auto) 2.4 % Neut % (Auto) 82.2 % Lymph % (Auto) 7.9 % Lincoln % (Auto) 7.3 % Eos % (Auto) 0.0 % Baso % (Auto) 0.2 % Neut # (Auto) 13.53 H (1.4-6.5) K/uL Lymph # (Auto) 1.31 (1.2-3.4) K/uL Lincoln # (Auto) 1.21 H (0.24-0.82) K/uL Eos # (Auto) 0.00 (0-0.50) K/uL Baso # (Auto) 0.04 (0-0.2) K/uL Immature Gran # (Auto) 0.40 H (0.00-0.02) K/uL Sodium (136-145) mmol/L Potassium (3.5-5.1) mmol/L Chloride (98-107) mmol/L Carbon Dioxide (21-32) mmol/L Anion Gap (3-11) BUN (6-23) mg/dl Creatinine (0.6-1.2) mg/dl Est Cr Clr Drug Dosing Est GFR ( Amer) ml/min Est GFR (Non-Af Amer) ml/min BUN/Creatinine Ratio (10-20) Glucose (70-99(Fasting)) mg/dl POC Glucose (70-99) mg/dl Osmolality (280-300) mOsm/kg Lactate (0.4-2.0) mmol/L Calcium (8.5-10.1) mg/dl Total Bilirubin (0.2-1.0) mg/dl AST (13-39) U/L ALT (7-52) U/L Alkaline Phosphatase (34-104) U/L Total Creatine Kinase (26-192) U/L Troponin I High Sens (0-14) pg/ml Total Protein (6.0-8.3) gm/dl Albumin (3.4-5.0) gm/dl Globulin (2.5-4.0) gm/dl Albumin/Globulin Ratio (0.9-2) Procalcitonin (0-0.5) ng/ml Urine Color Urine Appearance (Clear) Urine pH (4.5-7.5) Ur Specific Olga (1.000-1.030) Urine Protein (Negative) Urine Glucose (UA) (Negative) Urine Ketones (Negative) Urine Blood (Negative) Urine Nitrite (Negative) Urine Bilirubin (Negative) Urine Urobilinogen (Negative) Ur Leukocyte Esterase (Negative) Urine Osmolality (500-800) mOsm/kg Anaplasma Smear See Comment A. phagocytophilum DNA Babesia Smear See Comment Babesia microti DNA PCR Lyme Disease IgG Ab (Negative) Lyme Disease IgM Ab (Negative) SARS-CoV-2 (PCR) (Negative) Enterobacterales (PCR) (NotDetected) Hepatitis A IgM Ab Hep Bs Antigen Hep Bs Ag Confirmation Hep B Core IgM Ab Hepatitis C Ab (EIA) Hep C Ab Signal/Cutoff Influenza Type A (PCR) (Neg) Influenza Type B (PCR) (Neg) Proteus species (PCR) (NotDetected) RSV (RT-PCR) (Neg) blaIMP Car res Gene PCR (NotDetected) KPC-Carbap Res Gene PCR (NotDetected) blaNDM Car Res Gene PCR (NotDetected) OXA-48 Carbapenem Resis Gene (PCR) (NotDetected) blaVIM Car Res Gene PCR (NotDetected) CTX-M Gene Resistance (PCR) (NotDetected) Bld Cult ID Panel PCR (NotDetected) Resident Activity Tracking Resident Involvement: Resident Care Provided Care Provided: Adult Hospital Medicine
[2021-12-20] MEDS: ATORVASTATIN 20 MG TAB PO SCH (20:19)
--- NOTE | 2021-12-20 23:12 | Electrocardiogram Report ---
Test Reason : Blood Pressure : / mmHG Vent. Rate : 071 BPM Atrial Rate : 071 BPM P-R Int : 176 ms QRS Dur : 096 ms QT Int : 416 ms P-R-T Axes : 048 003 016 degrees QTc Int : 452 ms Poor data quality, interpretation may be adversely affected Normal sinus rhythm Possible Inferior infarct , age undetermined Cannot rule out Anterior infarct , age undetermined Abnormal ECG When compared with ECG of 17-NOV-2015 11:37, Nonspecific T wave abnormality now evident in Inferior leads Confirmed by Joe Esparza ([id number]) on 12/20/2021 11:11:56 PM Referred By: REFERRED SELF Confirmed By:Joe Esparza
[2021-12-21] MEDS: ACETAMINOPHEN 325 MG TAB PO PRN (05:53)
[2021-12-21 07:33] LABS: Basophils # (auto) 0.03 K/uL (0-0.2); Basophils % (auto) 0.2 %; Eosinophils # (auto) 0.01 K/uL (0-0.50); Eosinophils % (auto) 0.1 %; Hematocrit (blood only) 29.9 % (34.1-44.9); Hemoglobin 10.4 g/dl (12.0-16.0); Immature Granulocytes # (auto) 0.43 K/uL (0.00-0.02); Immature Granulocytes % (auto) 3.5 %; Lymphocytes # (auto) 0.97 K/uL (1.2-3.4); Lymphocytes % (auto) 7.8 %; Mean Corpuscular Hemoglobin 32.8 pg (25.0-34.0); Mean Corpuscular Hgb Conc 34.8 g/dL (32.0-36.0); Mean Corpuscular Volume 94.3 fL (80.0-100.0); Monocytes # (auto) 0.83 K/uL (0.24-0.82); Monocytes % (auto) 6.7 %; Neutrophils # (auto) 10.19 K/uL (1.4-6.5); Neutrophils % (auto) 81.7 %; Platelet Count 353 K/uL (130-400); RDW Coefficient of Variation 12.3 % (11.5-14.5); RDW Standard Deviation 42.5 fL (36.4-46.3); Red Blood Count 3.17 M/uL (3.93-5.22); White Blood Count 12.46 K/ul (4.8-10.8)
[2021-12-21 08:06] LABS: Albumin Globulin Ratio 0.8 (0.9-2); Albumin Level 2.6 gm/dl (3.4-5.0); Bilirubin,Total 1.3 mg/dl (0.2-1.0); Calcium 7.7 mg/dl (8.5-10.1); Creatinine Clr Calc Pharmacy 151.7 ml/min; Est GFR (African American) 126.2 ml/min; Est GFR (Non-African American) 108.8 ml/min; Globulin 3.2 gm/dl (2.5-4.0); Total Protein 5.8 gm/dl (6.0-8.3)
--- NOTE | 2021-12-21 08:12 | Hospitalist Progress Note ---
Date of Service December 21, 2021 Assessment & Plan (1) Bacteremia: Plan: 66yo female with a past medical history PMHx of colon cancer s/p resection, hypertension, hyperlipidemia, allergic rhinitis, vitamin D deficiency, urinary bladder spasm and diabetes mellitus presented with concern for UTI over past few days with associated weakness and visual hallucinations. Gram Negative Bacteremia, likely secondary from urinary source -presented with dysuria, urinary frequency past few days -UA no signs of infection, cultures not sent -blood cx preliminary growing gram neg bacilli -cont. rocephin, await sensitivities -WBC improving, trend cbc Acute hyponatremia -Sodium 125 on admission, improved to 128 -likely 2/2 to ongoing infection, poor intake -Restrict 1500 mLs, cont. sodium chloride 1g po TID -trend BMP Hallucinations, visual -Potential causes include but not limited to: Hydrocodone side effect, tickborne illness, hyponatremia, infection, SIADH -lyme neg; anaplasmosis/babesiosis smear neg, pcr pending -no longer on hydrocodone, hyponatremia improving -urine osmols 830 -positive bacteremia, on rocephin -brief episode of visual color disturbances this morning, resolved shortly after Weakness -as above, likely 2/2 ongoing infection and deconditioning -cont. PT/OT Abnormal LFTs -AST 67, ALT 103, type total bilirubin is 1.3, continue to improve -Only comparison was in 2016, when normal; however, does state her pcp found elevated enzymes a few months prior -hep panel pending -CK mildly elevated on admission -cont. to monitor Hypertension -Hold amlodipine due to soft pressures Hyperlipidemia -Continue atorvastatin Diabetes mellitus -Hold Ozempic -cont. Accu-Cheks before meals and at bedtime with NovoLog coverage per scale Allergic rhinitis -Continue cetirizine Vitamin D deficiency -Continue vitamin D Bladder spasms -Continue oxybutynin chloride -Patient reports a bladder stimulator placed 05/2020 is no longer functional Colon cancer History of colon cancer s/p resection Right leg pain Patient reports she has a shooting pain down her right leg intermittently after having received injection by Dr. Kuo in her right hip on 12/05 work-up is ongoing per outpatient DVT ppx: lovenox 40mg sq daily FEN/GI: HH, fluid restriction 1500mL Code Status: full Dispo: med surg (2) Acute hyponatremia: (3) Hallucinations, visual: (4) Abnormal LFTs: (5) Hypertension: (6) Hyperlipidemia: (7) Diabetes mellitus: (8) Allergic rhinitis: (9) Vitamin D deficiency: (10) Colon cancer: (11) Right leg pain: Admission and Anticipated Discharge Date Admission Date: December 20, 2021 Supervising Physician Co-Signing Physician Notes I personally examined the patient and verified all patel points of history and exam, discussed case, and agree with decision making with Dr Lowe. Feeling better overall. No vivid hallucinations, but did note that things looked a little more yellow and wavy earlier today which has since resolved. Otherwise feeling better. Is out of bed. Hip pain and mobility has improved. Vitals noted, in general she is awake and alert oriented pleasant no distress. HEENT normocephalic atraumatic mucous membranes moist. Breathing unlabored no accessory muscle use good effort. Skin shows no rashes no pallor or icterus. Neuro without focal deficits. Gram-negative bacteremia with sepsis (white count, transiently heart rate) present on admissioncontinue ceftriaxone pending final sensitivities. Likely was a urinary source in spite of her bland urinalysisgiven her persistent dysuria. Anticipate 14 days of total treatment, likely able to transition to p.o. once sensitivities are backstill pending at this time, but improving on ceftriaxone clinically, leukocytosis has improved. Hallucinationshave improved, waxing and waning not surprisingwhile it is a bit odd for them to be purely hallucinations as an encephalopathic/delirious picture related to the sepsis, it certainly fits with the "cause and effect timeline", although also she could have been having hallucinations as a side effect to her narcotic which has also been discontinued. Continue to monitor, but low suspicion for any sort of a psychosis. Unless it persists long beyond the overall acute situation Transaminitisif this is acute it would be septic related, or pain med relatedor possibly both. Hepatitis panel pending, although I doubt this will come of clinical significance. She noted that her PCP had seen some degree of transaminitis a few months agowhich also raises the possibility of something like steatohepatitis, more chronic drug toxicity, or again while I doubt that hepatitis panel will be positiveit definitely raises the importance that that has been sent and is pending. Hip painlikely arthritic. PT/OT eval and treat. Given that her bacteremia is gram-negative, low suspicion of any type of a septic joint, although if the pain seems to continue to worsen or fails to improve with therapy and time, then may need to consider working up further. Fortunately this has improved today Hyponatremiaprobably multifactorial, fairly mild, could have possibly been contributing to hallucinations but doubtful given the low degree of hyponatremia. There does appear to be an element of SIADH at play, but hopefully this is just acute. Continue to followdiscussed all of this with patient, but unless it is refractory/persistent, hopefully watchful waiting and serial labs will be all that is needed. DVT prophylaxisLovenox. Stable for medical, await PT/OT input Subjective Patient seen at bedside this morning. Sitting comfortably in chair. Right leg mobility improved since yesterday. Set to work with PT/OT today. Did have some color distorted visual hallucinations when waking up but have now resolved. Denies chest pain, SOB, abd pain, N/V, dysuria. Review of Systems Review of Systems: All systems reviewed & are unremarkable except as noted in HPI & below Physical Exam Physical Exam: General-- NCAT, sitting in chair, in no acute distress. HEENT--EOMI, moist mucous membranes Neck--supple. No JVD. Trachea midline, no adenopathy. Heart-- RRR. No murmurs, rubs, or gallops. Lungs--CTA bilaterally, no respiratory distress, no accessory muscle use. Abdomen-- soft. Nontender. Nondistended. Extremities--no cyanosis or clubbing. No edema. Good distal pulses b/l. Able to actively flex/extend knees bilaterally, good LE strength Skin-- normal color, no rash. Neurologic--AAOx3. cranial nerves II through XII grossly intact. Psychiatric--normal affect. Results & Data Results & Data ([facility]) Vital Signs (Past 12 Hours) Vital Signs Temp Pulse Pulse Resp BP Pulse Ox 12/21/21 02:38 37.4 C 65 18 115/70 95 12/20/21 23:40 85 12/20/21 23:02 36.7 C 83 18 102/63 96 Laboratory Results 12/21/21 12/21/21 12/20/21 Range/Units 06:46 06:46 16:09 WBC 12.46 H (4.8-10.8) K/ul RBC 3.17 L (3.93-5.22) M/uL Hgb 10.4 L (12.0-16.0) g/dl Hct 29.9 L (34.1-44.9) % MCV 94.3 (80.0-100.0) fL MCH 32.8 (25.0-34.0) pg MCHC 34.8 (32.0-36.0) g/dL RDW Std Deviation 42.5 (36.4-46.3) fL RDW Coeff of Julita 12.3 (11.5-14.5) % Plt Count 353 (130-400) K/uL MPV 10.0 (9.4-12.3) fL Immature Gran % (Auto) 3.5 % Neut % (Auto) 81.7 % Lymph % (Auto) 7.8 % [place] % (Auto) 6.7 % Eos % (Auto) 0.1 % Baso % (Auto) 0.2 % Neut # (Auto) 10.19 H (1.4-6.5) K/uL Lymph # (Auto) 0.97 L (1.2-3.4) K/uL [place] # (Auto) 0.83 H (0.24-0.82) K/uL Eos # (Auto) 0.01 (0-0.50) K/uL Baso # (Auto) 0.03 (0-0.2) K/uL Immature Gran # (Auto) 0.43 H (0.00-0.02) K/uL Sodium 128 L (136-145) mmol/L Potassium 4.0 D (3.5-5.1) mmol/L Chloride 98 (98-107) mmol/L Carbon Dioxide 25 (21-32) mmol/L Anion Gap 5 (3-11) BUN 19 D (6-23) mg/dl Creatinine 0.38 L (0.6-1.2) mg/dl Est Cr Clr Drug Dosing 151.7 ml/min Est GFR ( Amer) 126.2 ml/min Est GFR (Non-Af Amer) 108.8 ml/min BUN/Creatinine Ratio 50.0 H (10-20) Glucose 95 (70-99(Fasting)) mg/dl POC Glucose 85 (70-99) mg/dl Calcium 7.7 L (8.5-10.1) mg/dl Total Bilirubin 1.3 H (0.2-1.0) mg/dl AST 67 H (13-39) U/L ALT 103 H (7-52) U/L Alkaline Phosphatase 81 (34-104) U/L Total Protein 5.8 L (6.0-8.3) gm/dl Albumin 2.6 L (3.4-5.0) gm/dl Globulin 3.2 (2.5-4.0) gm/dl Albumin/Globulin Ratio 0.8 L (0.9-2) Urine Osmolality (500-800) mOsm/kg Enterobacterales (PCR) (NotDetected) Proteus species (PCR) (NotDetected) blaIMP Car res Gene PCR (NotDetected) KPC-Carbap Res Gene PCR (NotDetected) blaNDM Car Res Gene PCR (NotDetected) OXA-48 Carbapenem Resis Gene (PCR) (NotDetected) blaVIM Car Res Gene PCR (NotDetected) CTX-M Gene Resistance (PCR) (NotDetected) Bld Cult ID Panel PCR (NotDetected) 12/20/21 12/20/21 12/19/21 Range/Units 13:35 11:13 20:36 WBC (4.8-10.8) K/ul RBC (3.93-5.22) M/uL Hgb (12.0-16.0) g/dl Hct (34.1-44.9) % MCV (80.0-100.0) fL MCH (25.0-34.0) pg MCHC (32.0-36.0) g/dL RDW Std Deviation (36.4-46.3) fL RDW Coeff of Julita (11.5-14.5) % Plt Count (130-400) K/uL MPV (9.4-12.3) fL Immature Gran % (Auto) % Neut % (Auto) % Lymph % (Auto) % [place] % (Auto) % Eos % (Auto) % Baso % (Auto) % Neut # (Auto) (1.4-6.5) K/uL Lymph # (Auto) (1.2-3.4) K/uL [place] # (Auto) (0.24-0.82) K/uL Eos # (Auto) (0-0.50) K/uL Baso # (Auto) (0-0.2) K/uL Immature Gran # (Auto) (0.00-0.02) K/uL Sodium (136-145) mmol/L Potassium (3.5-5.1) mmol/L Chloride (98-107) mmol/L Carbon Dioxide (21-32) mmol/L Anion Gap (3-11) BUN (6-23) mg/dl Creatinine (0.6-1.2) mg/dl Est Cr Clr Drug Dosing ml/min Est GFR ( Amer) ml/min Est GFR (Non-Af Amer) ml/min BUN/Creatinine Ratio (10-20) Glucose (70-99(Fasting)) mg/dl POC Glucose 92 (70-99) mg/dl Calcium (8.5-10.1) mg/dl Total Bilirubin (0.2-1.0) mg/dl AST (13-39) U/L ALT (7-52) U/L Alkaline Phosphatase (34-104) U/L Total Protein (6.0-8.3) gm/dl Albumin (3.4-5.0) gm/dl Globulin (2.5-4.0) gm/dl Albumin/Globulin Ratio (0.9-2) Urine Osmolality 830 H (500-800) mOsm/kg Enterobacterales (PCR) DETECTED A (NotDetected) Proteus species (PCR) DETECTED A (NotDetected) blaIMP Car res Gene PCR Not Detected (NotDetected) KPC-Carbap Res Gene PCR Not Detected (NotDetected) blaNDM Car Res Gene PCR Not Detected (NotDetected) OXA-48 Carbapenem Resis Gene (PCR) Not Detected (NotDetected) blaVIM Car Res Gene PCR Not Detected (NotDetected) CTX-M Gene Resistance (PCR) Not Detected (NotDetected) Bld Cult ID Panel PCR See PCR Comment (NotDetected) d Resident Activity Tracking Resident Involvement: Resident Care Provided Care Provided: Adult Hospital Medicine
[2021-12-21] MEDS: SODIUM CHLORIDE 1 GM TABLET PO SCH ×3 (08:17→20:01)
[2021-12-21] MEDS: CETIRIZINE HCL 10 MG TABLET PO SCH (08:17)
[2021-12-21] MEDS: ENOXAPARIN INJ 40 MG/0.4 ML SYR SQ SCH (08:18)
[2021-12-21] MEDS: MULTIVITAMIN TAB PO SCH (08:18)
[2021-12-21] MEDS: CHOLECALCIFEROL 1,000 UNITS 25 MCG TAB PO SCH (08:18)
[2021-12-21] MEDS: OXYBUTYNIN CHLORIDE 5 MG TAB PO SCH ×3 (08:18→20:01)
[2021-12-21] MEDS: POLYETHYLENE (MIRALAX) 17 GM PACK PO SCH (08:19)
[2021-12-21] MEDS: ALUMINUM/MAGNESIUM/SIMETH (MAALOX MAX) 30 ML UDC PO SCH (08:26)
[2021-12-21] MEDS: cefTRIAXone SODIUM 2,000 MG in DEXTROSE 5% 50 ML IV SCH (08:26)
--- NOTE | 2021-12-21 11:56 | Billing Data ---
Date of Service December 21, 2021 Coding Level of Care Code 82028 Subseq Hosp Care Lvl 3
[2021-12-21 13:01] LABS: HBSAG NON-REACTIVE (NON-REACTIVE); Hepatitis A Antibody IgM NON-REACTIVE (NON-REACTIVE); Hepatitis B Core Antibody IgM NON-REACTIVE (NON-REACTIVE)
[2021-12-21] MEDS: ATORVASTATIN 20 MG TAB PO SCH (20:02)
[2021-12-22 06:24] LABS: Basophils # (auto) 0.02 K/uL (0-0.2); Basophils % (auto) 0.2 %; Eosinophils # (auto) 0.03 K/uL (0-0.50); Eosinophils % (auto) 0.3 %; Hematocrit (blood only) 31.4 % (34.1-44.9); Hemoglobin 10.7 g/dl (12.0-16.0); Immature Granulocytes # (auto) 0.32 K/uL (0.00-0.02); Lymphocytes % (auto) 10.2 %; Mean Corpuscular Hemoglobin 32.8 pg (25.0-34.0); Mean Corpuscular Hgb Conc 34.1 g/dL (32.0-36.0); Mean Corpuscular Volume 96.3 fL (80.0-100.0); Mean Platelet Volume 9.6 fL (9.4-12.3); Monocytes # (auto) 0.88 K/uL (0.24-0.82); Monocytes % (auto) 8.2 %; Neutrophils # (auto) 8.44 K/uL (1.4-6.5); Neutrophils % (auto) 78.1 %; Platelet Count 373 K/uL (130-400); RDW Standard Deviation 46.2 fL (36.4-46.3); Red Blood Count 3.26 M/uL (3.93-5.22); White Blood Count 10.79 K/ul (4.8-10.8)
[2021-12-22 07:03] LABS: Albumin Globulin Ratio 0.8 (0.9-2); Albumin Level 2.6 gm/dl (3.4-5.0); BUN Creatinine Ratio 35.1 (10-20); Bilirubin,Total 0.8 mg/dl (0.2-1.0); Calcium 7.8 mg/dl (8.5-10.1); Creatinine Clr Calc Pharmacy 155.8 ml/min; Est GFR (African American) 127.3 ml/min; Est GFR (Non-African American) 109.8 ml/min; Globulin 3.3 gm/dl (2.5-4.0); Potassium 4.1 mmol/L (3.5-5.1); Total Protein 5.9 gm/dl (6.0-8.3)
[2021-12-22] MEDS ORDERED: CHOLECALCIFEROL 1,000 UNITS 25 MCG TAB PO SCH (09:00)
[2021-12-22] MEDS: cefTRIAXone SODIUM 2,000 MG in DEXTROSE 5% 50 ML IV SCH (09:04)
[2021-12-22] MEDS: POLYETHYLENE (MIRALAX) 17 GM PACK PO SCH (09:04)
[2021-12-22] MEDS: ENOXAPARIN INJ 40 MG/0.4 ML SYR SQ SCH (09:04)
[2021-12-22] MEDS: MULTIVITAMIN TAB PO SCH (09:04)
[2021-12-22] MEDS: OXYBUTYNIN CHLORIDE 5 MG TAB PO SCH ×2 (09:04→14:51)
[2021-12-22] MEDS: CETIRIZINE HCL 10 MG TABLET PO SCH (09:05)
[2021-12-22] MEDS: SODIUM CHLORIDE 1 GM TABLET PO SCH ×2 (09:05→14:51)
[2021-12-22] MEDS: ALUMINUM/MAGNESIUM/SIMETH (MAALOX MAX) 30 ML UDC PO SCH (09:08)
[2021-12-22] MEDS: ACETAMINOPHEN 325 MG TAB PO PRN (12:13)
--- NOTE | 2021-12-22 14:16 | Discharge Summary ---
Date of Service December 22, 2021 Admission HPI Per Admitting Provider The patient is a 66-year-old female with a past medical history including colon cancer s/p resection, hypertension, hyperlipidemia, allergic rhinitis, vitamin D deficiency, urinary bladder spasm and diabetes mellitus. She presents with symptoms as noted above. The patient presents to the emergency department with complaint of discomfort urinating for the past 2 to 3 days, similar to symptoms that she has had in the past when she had urinary tract infections. She also complains of hallucinations including seeing small bugs, and feeling generally weak. Principal Diagnosis Gram negative bacteremia Discharge Exam General-- NCAT, sitting on side of bed, in no acute distress. HEENT--EOMI, moist mucous membranes Neck--supple.No JVD. Trachea midline, no adenopathy. Heart-- RRR. No murmurs, rubs, or gallops. Lungs--CTA bilaterally, no respiratory distress, no accessory muscle use. Abdomen-- soft. Nontender. Nondistended. Extremities--no cyanosis or clubbing. No edema. Good distal pulses b/l. Limited active flexion/extension R knee, 1/5 R hip strength. Left LE normal strength and ROM. Skin-- normal color, no rash. Neurologic--AAOx3. cranial nerves II through XII grossly intact. Psychiatric--normal affect. Discharge Data Allergies Allergy/AdvReac Type Severity Reaction Status Date / Time codeine Allergy Unknown RASH Verified 12/19/21 22:01 Consultations 12/20/21 00:31 ED Decision to Admit Stat Ordered Studies Laboratory Results WBC 10.79 K/ul (4.8-10.8) 12/22/21 05:49 RBC 3.26 M/uL (3.93-5.22) L 12/22/21 05:49 Hgb 10.7 g/dl (12.0-16.0) L 12/22/21 05:49 Hct 31.4 % (34.1-44.9) L 12/22/21 05:49 MCV 96.3 fL (80.0-100.0) 12/22/21 05:49 MCH 32.8 pg (25.0-34.0) 12/22/21 05:49 MCHC 34.1 g/dL (32.0-36.0) 12/22/21 05:49 RDW Std Deviation 46.2 fL (36.4-46.3) 12/22/21 05:49 RDW Coeff of Julita 13.0 % (11.5-14.5) 12/22/21 05:49 Plt Count 373 K/uL (130-400) 12/22/21 05:49 MPV 9.6 fL (9.4-12.3) 12/22/21 05:49 Immature Gran % (Auto) 3.0 % 12/22/21 05:49 Neut % (Auto) 78.1 % 12/22/21 05:49 Lymph % (Auto) 10.2 % 12/22/21 05:49 [place] % (Auto) 8.2 % 12/22/21 05:49 Eos % (Auto) 0.3 % 12/22/21 05:49 Baso % (Auto) 0.2 % 12/22/21 05:49 Neut # (Auto) 8.44 K/uL (1.4-6.5) H 12/22/21 05:49 Lymph # (Auto) 1.10 K/uL (1.2-3.4) L 12/22/21 05:49 [place] # (Auto) 0.88 K/uL (0.24-0.82) H 12/22/21 05:49 Eos # (Auto) 0.03 K/uL (0-0.50) 12/22/21 05:49 Baso # (Auto) 0.02 K/uL (0-0.2) 12/22/21 05:49 Immature Gran # (Auto) 0.32 K/uL (0.00-0.02) H 12/22/21 05:49 Sodium 130 mmol/L (136-145) L 12/22/21 05:49 Potassium 4.1 mmol/L (3.5-5.1) 12/22/21 05:49 Chloride 99 mmol/L (98-107) 12/22/21 05:49 Carbon Dioxide 26 mmol/L (21-32) 12/22/21 05:49 Anion Gap 5 (3-11) 12/22/21 05:49 BUN 13 mg/dl (6-23) 12/22/21 05:49 Creatinine 0.37 mg/dl (0.6-1.2) L 12/22/21 05:49 Est Cr Clr Drug Dosing 155.8 ml/min 12/22/21 05:49 Est GFR ( Amer) 127.3 ml/min 12/22/21 05:49 Est GFR (Non-Af Amer) 109.8 ml/min 12/22/21 05:49 BUN/Creatinine Ratio 35.1 (10-20) H 12/22/21 05:49 Glucose 103 mg/dl (70-99(Fasting)) H 12/22/21 05:49 POC Glucose 85 mg/dl (70-99) 12/20/21 16:09 Osmolality 285 mOsm/kg (280-300) 12/19/21 19:28 Lactate 1.2 mmol/L (0.4-2.0) 12/19/21 20:36 Calcium 7.8 mg/dl (8.5-10.1) L 12/22/21 05:49 Total Bilirubin 0.8 mg/dl (0.2-1.0) D 12/22/21 05:49 AST 56 U/L (13-39) H 12/22/21 05:49 ALT 104 U/L (7-52) H 12/22/21 05:49 Alkaline Phosphatase 86 U/L (34-104) 12/22/21 05:49 Total Creatine Kinase 359 U/L (26-192) H 12/19/21 19:28 Troponin I High Sens 12.3 pg/ml (0-14) 12/19/21 19:28 Total Protein 5.9 gm/dl (6.0-8.3) L 12/22/21 05:49 Albumin 2.6 gm/dl (3.4-5.0) L 12/22/21 05:49 Globulin 3.3 gm/dl (2.5-4.0) 12/22/21 05:49 Albumin/Globulin Ratio 0.8 (0.9-2) L 12/22/21 05:49 Procalcitonin 0.76 ng/ml (0-0.5) H 12/19/21 19:28 Urine Color Yellow 12/19/21 19:45 Urine Appearance Clear (Clear) 12/19/21 19:45 Urine pH 5.5 (4.5-7.5) 12/19/21 19:45 Ur Specific [place] 1.020 (1.000-1.030) 12/19/21 19:45 Urine Protein Negative (Negative) 12/19/21 19:45 Urine Glucose (UA) Negative (Negative) 12/19/21 19:45 Urine Ketones Trace (Negative) H 12/19/21 19:45 Urine Blood Negative (Negative) 12/19/21 19:45 Urine Nitrite Negative (Negative) 12/19/21 19:45 Urine Bilirubin Negative (Negative) 12/19/21 19:45 Urine Urobilinogen Negative (Negative) 12/19/21 19:45 Ur Leukocyte Esterase Negative (Negative) 12/19/21 19:45 Urine Osmolality 830 mOsm/kg (500-800) H 12/20/21 13:35 Anaplasma Smear See Comment 12/19/21 19:28 Babesia Smear See Comment 12/19/21 19:28 Lyme Disease IgG Ab Negative (Negative) 12/19/21 19:28 Lyme Disease IgM Ab Negative (Negative) 12/19/21 19:28 SARS-CoV-2 (PCR) NEGATIVE (Negative) 12/19/21 20:52 Enterobacterales (PCR) DETECTED (NotDetected) A 12/19/21 20:36 Hepatitis A IgM Ab NON-REACTIVE (NON-REACTIVE) 12/20/21 05:26 Hep Bs Antigen NON-REACTIVE (NON-REACTIVE) 12/20/21 05:26 Hep Bs Ag Confirmation TNP 12/20/21 05:26 Hep B Core IgM Ab NON-REACTIVE (NON-REACTIVE) 12/20/21 05:26 Hepatitis C Ab (EIA) NON-REACTIVE (NON-REACTIVE) 12/20/21 05:26 Hep C Ab Signal/Cutoff 0.12 (<1.00) 12/20/21 05:26 Influenza Type A (PCR) Negative (Neg) 12/19/21 20:52 Influenza Type B (PCR) Negative (Neg) 12/19/21 20:52 Proteus species (PCR) DETECTED (NotDetected) A 12/19/21 20:36 RSV (RT-PCR) Negative (Neg) 12/19/21 20:52 blaIMP Car res Gene PCR Not Detected (NotDetected) 12/19/21 20:36 KPC-Carbap Res Gene PCR Not Detected (NotDetected) 12/19/21 20:36 blaNDM Car Res Gene PCR Not Detected (NotDetected) 12/19/21 20:36 OXA-48 Carbapenem Resis Gene (PCR) Not Detected (NotDetected) 12/19/21 20:36 blaVIM Car Res Gene PCR Not Detected (NotDetected) 12/19/21 20:36 CTX-M Gene Resistance (PCR) Not Detected (NotDetected) 12/19/21 20:36 Bld Cult ID Panel PCR See PCR Comment (NotDetected) 12/19/21 20:36 Impressions Chest X-Ray 12/19/21 21:10 XR chest 1V portable HISTORY: weakness COMPARISON: Chest 11/17/2015. FINDINGS: The lungs are clear. No pleural effusions. No pneumothorax. The cardiac silhouette remains mildly enlarged. No rib fractures. IMPRESSION: No significant change compared to the prior study. No acute process. ACT 112: Negative or not required by law. Electronically signed by: Gonzalez Danielle M.D. 12/20/2021 7:53 AM Abdomen/Pelvis CT 12/19/21 21:[address] WITH IV CONTRAST CT DOSE: 1435.22 mGy.cm HISTORY: lower abd pain, leukocytosis TECHNIQUE: Multiaxial CT images of the abdomen and pelvis were performed following the use of intravenous contrast. A dose lowering technique was utilized adhering to the principles of ALARA. COMPARISON STUDY: None. FINDINGS: A 3 mm subpleural nodule within the right lower lobe on image 6. This favors an area of scarring. The left lung base is clear. No pneumoperitoneum. No pneumatosis. Degenerative changes within the lumbar spine and hips. There is a right gluteal stimulator device with the lead terminating within the right side of the sacrum. Prior mesh repair of a midline ventral hernia. There is a tiny hiatus hernia. Cholecystectomy and hysterectomy. The liver, spleen, pancreas, and right adrenal gland are unremarkable. Mild nodular thickening within the left adrenal gland. There are few subcentimeter bilateral renal hypodense lesions. These are technically too small to characterize. No renal or ureteral calculi. No hydronephrosis. There is a left retroaortic renal vein. Calcified plaque within the normal caliber abdominal aorta. No retroperitoneal lymphadenopathy. No pelvic free fluid. The bladder is unremarkable. Moderate well-formed stool within the distal rectum. Prior rectosigmoid anastomosis. Mildly dilated gas and stool-filled colon. No transition point to suggest an obstruction. Overall, there is a moderate amount of well-formed stool within the colon suggestive of constipation. Normal appendix. The small bowel is normal in caliber. IMPRESSION: 1. No bowel wall thickening or obstruction. 2. Moderate well-formed stool seen throughout the colon. 3. Prior cholecystectomy and hysterectomy. 4. Additional findings as described above. ACT 112: Negative or not required by law. Electronically signed by: Gonzalez Danielle M.D. 12/20/2021 8:[address] 12/19/21 21:25 CT head/brain wo con CLINICAL HISTORY: 66 years-old Female with dizzy. Acute dizziness TECHNIQUE: Multiple axial CT images of the head were obtained without contrast. A dose lowering technique was utilized adhering to the principles of ALARA. CT DOSE: 537.48 mGy.cm COMPARISON: None. FINDINGS: No acute intracranial hemorrhage, midline shift, intracranial mass, hydrocephalus, territorial ischemia or abnormal extra-axial collection. Low- lying cerebellar tonsils. The calvarium is intact. The paranasal sinuses, mastoid air cells, and middle ear cavities are clear. IMPRESSION: No acute intracranial abnormality. ACT 112: Negative or not required by law. The above report was generated using voice recognition software. It may contain grammatical, syntax or spelling errors. Electronically signed by: Chito Perez M.D. 12/20/2021 6:55 AM Hospital Course (1) Bacteremia: 66yo female with a past medical history PMHx of colon cancer s/p resection, hypertension, hyperlipidemia, allergic rhinitis, vitamin D deficiency, urinary bladder spasm and diabetes mellitus presented with concern for UTI over past few days with associated weakness and visual hallucinations. Gram Negative Bacteremia, likely secondary from urinary source -presented with dysuria, urinary frequency past few days -UA no signs of infection, cultures not sent -blood cx: proteus -tx with empiric rocephin, will complete abx course outpatient with cefdinir 300mg bid x7 more days Acute hyponatremia -Sodium 125 on admission, improved to 130 -likely 2/2 to ongoing infection, urinary frequency, SIADH -urine osmols 830 -Treated with fluid restriction 1500 mL and salt tabs -f/u pcp, repeat cmp outpatient Hallucinations, visual, resolved -Potential causes include but not limited to: Hydrocodone side effect, tickborne illness, hyponatremia, infection, SIADH -lyme neg; anaplasmosis/babesiosis smear neg, pcr pending -no longer on hydrocodone, hyponatremia improving, treating bacteremia Weakness -as above, likely 2/2 ongoing infection and deconditioning -will need ongoing physical therapy in outpatient setting -given script for PT, wheelchair, and walker for ambulatory support Abnormal LFTs -AST 56, ALT 104, type total bilirubin is 0.8, continue to improve -As of october 2021, only bilirubin mildly elevated -hep panel negative -CK mildly elevated on admission -CT abd/pel (12/19): prior cholecystectomy, unremarkable liver findings -f/u pcp, repeat cmp; consider outpatient RUQ US Hypertension -cont. home amlodipine Hyperlipidemia -Continue atorvastatin Diabetes mellitus -cont. home Ozempic Allergic rhinitis -Continue cetirizine Vitamin D deficiency -Continue vitamin D Bladder spasms -Continue oxybutynin chloride -Patient reports a bladder stimulator placed 05/2020 is no longer functional Colon cancer History of colon cancer s/p resection Right leg pain Patient reports she has a shooting pain down her right leg intermittently after having received injection by Dr. Kuo in her right hip on 12/05 work-up is ongoing per outpatient (2) Acute hyponatremia: (3) Hallucinations, visual: (4) Abnormal LFTs: (5) Hypertension: (6) Hyperlipidemia: (7) Diabetes mellitus: (8) Allergic rhinitis: (9) Vitamin D deficiency: (10) Colon cancer: (11) Right leg pain: Total Time Total Time Spent Total Time Spent (In Minutes): 36 Discharge Plan Discharge Items Patient Disposition: Home - Self-Care Reason For Visit: HYPONATREMIA, HALLUCINATIONS Discharge Diagnosis: Gram negative bacteremia Activity: Per Instructions section Non-emergency contact: Primary Care Provider Call non-emergency contact if: you have any medication questions, your symptoms worsen and you have a fever Follow-up/Referrals: Marylou Phoenix CRNP [Primary Care Provider] - Diet: Heart Healthy Addtl Attending Provider Instructions: You were admitted to the hospital for a few different complaints including lower extremity weakness, visual hallucinations, and pain with urination with concerns for UTI. With further work-up we found that you had an infection in your blood which was likely spread from your urinary tract. We treated you with IV antibiotics and we will send you home with a prescription for oral antibiotics which you are to take for 7 days following discharge. Visual hallucinations have resolved and may have been due to a combination of your infection and hyponatremia. If you ever experience visual hallucinations in the future please contact your PCP for further evaluation. Your hyponatremia has continued to resolve while here with fluid restriction and salt tabs. Again your hyponatremia was most likely due to a combination of infection, urinary frequency, and SIADH. This should continue to resolve but you will follow-up with your primary care provider who will run additional lab tests to confirm resolution. The ogoing weakness you are experiencing likely began with this blood infection. The hope is that as we continue to treat the infection your body will begin to feel stronger. However your body will need additional help with outpatient physical therapy in the acute setting. We have sent you prescriptions for a walker, wheelchair, and physical therapy. Lastly in the hospital you did have some mild elevations in your liver enzymes. Although this could be attributed to your current infection, you should follow- up with this as an outpatient with your primary care provider. They will repeat these labs and assess the need for further evaluation. New Medications/scripts: -Cefdinir 300mg twice daily- begin on 12/23/21 -walker -wheel chair -physical therapy Pending Studies at Discharge: Yes Studies:: anaplasma/babesia pcr Stand-Alone Forms: [facility], Smoking Cessation Medications and DC Order Prescriptions: New (DME) walker Misc See Rx Instructions .Route Qty: 1 RF: 0 cefdinir 300 mg capsule 300 mg PO BID 7 Days Qty: 14 RF: 0 Continued multivitamin Tablet 1 tab PO DAILY RF: 0 amlodipine 2.5 mg Tablet 2.5 mg PO DAILY RF: 0 oxybutynin chloride 5 mg Tablet 5 mg PO TID RF: 0 atorvastatin 20 mg Tablet 20 mg PO PM RF: 0 cetirizine [Zyrtec] 10 mg Tablet 10 mg PO DAILY RF: 0 triamcinolone acetonide 0.1 % Cream 1 applic TOPICAL BID PRN (Reason: Itching) RF: 0 alum-mag hydroxide-simeth [Maalox] 200-200-20 mg/5 mL Suspension 20 ml PO DAILY RF: 0 cholecalciferol (vitamin D3) [Vitamin D3] 25 mcg (1,000 unit) Tablet 25 mcg PO 5XWK RF: 0 cholecalciferol (vitamin D3) [Vitamin D3] 25 mcg (1,000 unit) Tablet 50 mcg PO TUSA RF: 0 Ozempic Dose 1 mg INJ WE RF: 0 Discharge Orders: Discharge Order (Routine); Ordered 12/22/21 Ordered By: Olman Lowe Admission Data Admit Date/Time: 12/20/21 01:02 Attending Provider: Emeka Velazquez Admit Provider: Montana Ventura Primary Care Provider: Marylou Phoenix Other Providers: Emeka Velazquez Supervising Physician Co-Signing Physician Notes I supervised Olman Lowe DO on this admission. I interviewed and examined the patient independently of him. The plan is as written in the note except for any following changes/exceptions: 66yo F w/ hx of HTN, HLD who presented with hallucinations, weakness, and worsen ing RLE weakness. The patient was found to have Proteus bacteremia which we are assuming was from a urinary source given her symptoms (even though she had a normal UA). 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 Likewise, her hallucinations have resolved. I would also chalk these up to her bacteremia, though she will also use the hydrocodone she has at home carefully. Her RLE weakness is quite concerning to me. She has known right hip OA with plan for replacement in February, but this seems more neurologic in nature with minimal pain, but just weakness. I offered her continued admission for an MRI of the lumbar spine as well as orthopedic spine evaluation. She declines at this time. I did tell her my concern about spinal compression and gave her list of red flag signs to look for (worsening weakness, loss of sensation, loss of bowel/bladder control, saddle anesthesia) of which she has none now. As stated, she declines further admission at this time, but I assured her we are here if she has any further symptoms. For her transaminitis, we are seeing improvement with treatment of her sepsis, so possibly some mild acute liver injury from it. All direct hepatitis labs are negative. Can f/u with PCP in 1 week to recheck. Resident Activity Tracking Resident Involvement: Resident Care Provided Care Provided: Adult [facility]
--- NOTE | 2021-12-22 14:55 | Billing Data ---
Date of Service December 22, 2021 Coding Level of Care Code D/C DAY MANAGEMENT >30 MINS
[2021-12-23 13:32] LABS: Babesia microti DNA Not Detected (Not Detected)
--- NOTE | 2022-01-03 09:17 | Coding Query ---
CODING QUERY To promote full compliance with coding requirements relating to patient care, provider participation is requested in all cases of rayon winder uncertainty. Please assist us with the question(s) below: Coding Question(s): The Discharge Summary documents regarding the visual hallucinations, "Visual hallucinations have resolved and may have been due to a combination of your infection and hyponatremia", and , "The patient was found to have Proteus bacteremia which we are assuming was from a urinary source given her symptoms (even though she had a normal UA). 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 Likewise, her hallucinations have resolved. I would also chalk these up to her bacteremia, though she will also use the hydrocodone she has at home carefully", and the Discharge Summary also documents regarding Sepsis, "For her transaminitis, we are seeing improvement with treatment of her sepsis, so possibly some mild acute liver injury from it", and there is documentation on Progress Note 12/20 of, "Hallucinationshave resolvedwhile it is a bit odd for them to be purely hallucinations as an encephalopathic/delirious picture related to the sepsis, it certainly fits with the "cause and effect timeline", although also she could have been having hallucinations as a side effect to her narcotic which has also been discontinued. Continue to monitor, but low suspicion for any sort of a psychosis", and on Progress Note 12/21 of, "Hallucinationshave improved, waxing and waning not surprisingwhile it is a bit odd for them to be purely hallucinations as an encephalopathic/delirious picture related to the sepsis, it certainly fits with the "cause and effect timeline", although also she could have been having hallucinations as a side effect to her narcotic which has also been discontinued. Continue to monitor, but low suspicion for any sort of a psychosis. Unless it persists long beyond the overall acute situation". Please specify below, in your clinical opinion. ( x ) hallucinations are most likely due to Sepsis with Encephalopathic/delirious picture related to the Sepsis - meaning Septic Encephalopathy ( ) hallucinations are most likely related to Sepsis but without Encephalopathy ( ) hallucinations are most likely related bacteremia with NO Sepsis ( ) Other: Please Specify Physician's Response(s): Thank you Zohreh Carrero Principal Diagnosis: "that condition established after study, to be chiefly responsible for occasioning the admission of the patient to the hospital for care." Co-Existing Principal Diagnosis: "when two or more diagnoses equally meet the criteria for principal diagnosis as determined by the circumstances of admission, diagnostic work up, and/or therapy provided, and the Alphabetic Index, Tabular List, or another coding guideline does not provide sequencing direction, any one of the diagnoses may be sequenced first." "When the physician has documented what appears to be a current diagnosis in the body of the record, but has not included the diagnosis in the final diagnostic statement, the physician should be asked whether the diagnosis should be added." (Source Coding [facility] 2 QTR90. p3-4) MAHI
== END 2021-12-22 15:20 | disposition home or self-care (01) | DRG 871 ==
LOC: ED 18:43 → 2S 12-20 01:02 → SUATTDRO 12-20 01:02 → 2S 12-20 01:53 → 3N 12-21 18:27